=== PATIENT | female | born 1985 | race Caucasian/White ===

== ENCOUNTER 2016-09-28 13:09 | Inpatient (IN) | payer OTHER ==
[~2016-09-28] VITALS: Ht 160 cm; Wt 86.0 kg
[2016-09-28] VITALS (20 sets, daily range): BP systolic 126–160; BP diastolic 70–92
[2016-09-28] MEDS ORDERED: RANI15TA PO (13:22)
[2016-09-28] MEDS ORDERED: PRENTAB9 PO (13:22)
[2016-09-28] MEDS ORDERED: OXYTOCIN DRIP 30 UNITS in APPROPRIATE DILUENT 1 EA IV SCH (14:00)
[2016-09-28 14:28] LABS: MEAN CORPUSCULAR HEMOGLOBIN 28.9 pg (27.0-33.0); MEAN CORPUSCULAR HGB CONC 32.9 g/dl (32.0-36.5); MEAN CORPUSCULAR VOLUME 87.9 fl (80.0-96.0); RED CELL DISTRIBUTION WIDTH 13.7 % (11.5-14.5); WHITE BLOOD COUNT 11.6 K/mm3 (4.0-10.0)
[2016-09-28 14:50] LABS: ALT/SGPT 13 U/L (12-78); AST/SGOT 20 U/L (15-37); BILIRUBIN,TOTAL 0.3 MG/DL (0.2-1.0); CREATININE FOR GFR 0.67 MG/DL (0.55-1.02); GLOMERULAR FILTRATION RATE > 60.0 (>60); URIC ACID 5.2 MG/DL (2.6-6.0)
[2016-09-28] MEDS: LR 1,000 ML IV SCH ×2 (15:00→21:46)
[2016-09-28] MEDS ORDERED: PENICILLIN G POTASSIUM IV 5 MU in D5W MINI-BAG PLUS 100 ML IV STA (22:06)
[2016-09-28] MEDS: raNITIdine SYRUP 150 MG/10 ML UDC PO SCH (23:16)
[2016-09-29] VITALS (55 sets, daily range): BP systolic 116–166; BP diastolic 62–96
[2016-09-29] MEDS: PENICILLIN G POTASSIUM IV 2.5 MU in D5W 100 ML IV SCH ×3 (02:55→10:58)
[2016-09-29] MEDS ORDERED: FENTANYL 2MCG/ML ROPIVACAINE 0.2% IN 0.9% NACL 200ML IVBAG As Ordered ONE (04:05)
[2016-09-29] MEDS: FENTANYL/ROPIVACAINE/NACL BAG 200 ML EPIDURAL SCH ×2 (05:15→18:11)
[2016-09-29] MEDS ORDERED: NALOXONE INJ 0.4 MG/1 ML VIAL (J2310) IV PRN (05:15)
[2016-09-29] MEDS ORDERED: LACTATED RINGER'S 1000 ML IV PRN (05:15)
[2016-09-29] MEDS ORDERED: ePHEDrine SULFATE 25 MG/5 ML(5MG/ML) SYRINGE IV PRN (05:15)
[2016-09-29] MEDS ORDERED: EPIDURAL COMMENT XX SCH (05:15)
[2016-09-29] MEDS ORDERED: EPIDURAL/PCA KEYS XX PRN (05:15)
[2016-09-29] MEDS ORDERED: ONDANSETRON 4MG/2ML VIAL (J2405) IV PRN ×2 (05:15→22:00)
[2016-09-29] MEDS ORDERED: diphenhydrAMINE INJ 50MG/ML VIAL (J1200) IV PRN (05:15)
[2016-09-29] MEDS ORDERED: REFRIGERATOR IV KEYS XX PRN (05:15)
[2016-09-29] MEDS: LR 1,000 ML IV SCH (05:46)
[2016-09-29] MEDS ORDERED: OXYTOCIN DRIP 30 UNITS in APPROPRIATE DILUENT 1 EA IV SCH ×3 (08:00→23:06)
[2016-09-29] MEDS: raNITIdine SYRUP 150 MG/10 ML UDC PO SCH (09:00)
--- NOTE | 2016-09-29 11:27 | IPNPDOC ---
Text Note Date of Service The patient was seen on 09/29/16. NOTE SBAR from [facility] Maria Del Rosario at [phone]. IOL for Pre-E. No pre-e sx's currently. Epidural working well, but lots of pressure. FHT is Cat 1, on 10 mu/min pitocin VSS, no severe BP's Cx 7/c/-1 active labor now. Recheck in 2-3 hrs, sooner prn. Sessions Isa NIX, I+O VSIsa I+O Laboratory Tests 09/28/16 14:09 Aspartate Amino Transf (AST/SGOT) 20, Alanine Aminotransferase (ALT/SGPT) 13, Lactate Dehydrogenase 265 H, Total Bilirubin 0.3, Uric Acid 5.2 09/28/16 14:10 Red Blood Count 3.88 L, Mean Corpuscular Volume 87.9, Mean Corpuscular Hemoglobin 28.9, Mean Corpuscular Hemoglobin Concent 32.9, Red Cell Distribution Width 13.7 Vital Signs Date Time Temp Pulse Resp B/P (MAP) Pulse Ox O2 Delivery O2 Flow Rate FiO2 09/29/16 09:06 94 16 123/68 (86) 09/29/16 07:36 97.9 I&O- Last 24 Hours up to 6 AM 09/29/16 05:59 Intake Total 1400 ml Output Total 1000 ml Balance 400 ml VIANEY SLATER MD September 29, 2016 11:27
--- NOTE | 2016-09-29 13:24 | IPNPDOC ---
Text Note Date of Service The patient was seen on 09/29/16. NOTE lots pressure. NST cat 1. Cx 7-8/90/-1, not ,uch change/ OIUPC placed, incr pit to sebastián GUNTER's, d/w RN. Sessions VS,Isa, I+O VS, Isa I+O Laboratory Tests 09/28/16 14:09 Aspartate Amino Transf (AST/SGOT) 20, Alanine Aminotransferase (ALT/SGPT) 13, Lactate Dehydrogenase 265 H, Total Bilirubin 0.3, Uric Acid 5.2 09/28/16 14:10 Red Blood Count 3.88 L, Mean Corpuscular Volume 87.9, Mean Corpuscular Hemoglobin 28.9, Mean Corpuscular Hemoglobin Concent 32.9, Red Cell Distribution Width 13.7 Vital Signs Date Time Temp Pulse Resp B/P (MAP) Pulse Ox O2 Delivery O2 Flow Rate FiO2 09/29/16 11:36 100 16 129/77 (94) 09/29/16 11:05 99.9 I&O- Last 24 Hours up to 6 AM 09/29/16 06:00 Intake Total 1400 ml Output Total 1000 ml Balance 400 ml SESSIONS,VIANEY Marie MD September 29, 2016 13:24
[2016-09-29] MEDS ORDERED: AMPICILLIN SOD/SULBACTAM SOD 3 GM in D5W MINI-BAG PLUS 100 ML IV SCH (15:00)
--- NOTE | 2016-09-29 16:20 | IPNPDOC ---
Text Note Date of Service The patient was seen on 09/29/16. NOTE Approximately 1 hr ago was 9 cm. Now with pressure is C/C/IGNACIO/+2. Due to the fever, will start pushing and not "labor down." NST Cat 1, reg ctx's. Sessions VS,Isa, I+O VS, Isa I+O Vital Signs Date Time Temp Pulse Resp B/P (MAP) Pulse Ox O2 Delivery O2 Flow Rate FiO2 09/29/16 11:36 100 16 129/77 (94) 09/29/16 11:05 99.9 I&O- Last 24 Hours up to 6 AM 09/29/16 05:59 Intake Total 1400 ml Output Total 1000 ml Balance 400 ml SESSIONS,VIANEY Marie MD September 29, 2016 16:20
[2016-09-29] MEDS ORDERED: BICITRA 30ML SOLN UDC As Ordered ONE (20:12)
[2016-09-29] MEDS ORDERED: ceFAZolin 1GM INJ (J0690) As Ordered ONE (20:12)
[2016-09-29] MEDS ORDERED: MORPHINE PRES-FREE INJ 10 MG/10 ML VIAL (J2274) As Ordered ONE (20:15)
[2016-09-29] MEDS ORDERED: OXYTOCIN INJ 10 UNITS/ML VIAL (J2590) As Ordered ONE ×2 (20:15→20:16)
--- NOTE | 2016-09-29 20:16 | IPNPDOC ---
Text Note Date of Service The patient was seen on 09/29/16. NOTE Checked pt 1 hour after starting pushing and was unchanged at +1 station. I kvngsvetlana was called to the ED to care for an incomplete AB that I took to the OR for a D&C. Razia called me approximately 2.5-3 hrs after starting pushing and taht her efforts had been ineffective for >1 hour and that she sdid not detect any downward movement. I directed them to stop pushing and rest the pt for ~1 hour and then I would reassess after I was finished in the OR. My exam now shows no concerning FHR changes, Cat 1 NST, re g ctx's on 20 mu/min pitocin. Early's only with pushing. No change in station therefore I recommend and informed consent obtained. To the OR, anesthesia notified. Sessions Isa NIX, I+O VSIsa I+O Vital Signs Date Time Temp Pulse Resp B/P (MAP) Pulse Ox O2 Delivery O2 Flow Rate FiO2 09/29/16 11:36 100 16 129/77 (94) 09/29/16 11:05 99.9 I&O- Last 24 Hours up to 6 AM 09/29/16 06:00 Intake Total 1400 ml Output Total 1000 ml Balance 400 ml SESSIONSVIANEY MD September 29, 2016 20:16
[2016-09-29] MEDS ORDERED: PHENYLephrine HCL 500 MCG/5 ML (100MCG/ML) SYRINGE (J2370) As Ordered ONE ×3 (20:50→23:59)
[2016-09-29] MEDS ORDERED: ONDANSETRON 4MG/2ML VIAL (J2405) As Ordered ONE (20:52)
[2016-09-29] MEDS ORDERED: KETOROLAC 60 MG/2 ML VIAL (J1885) As Ordered ONE (20:52)
[2016-09-29 21:12] LABS: CORD GAS ABE V -5.9; CORD GAS HCO3 V 22.5 MEQ/L; CORD GAS PCO2 V 54.5 mmHg; CORD GAS PH V 7.234 UNITS; CORD GAS PO2 V 21.9 mmHg; CORD GAS SBC V 18.3 MEQ/L; CORD GAS TCO2 V 24.2 MEQ/L
[2016-09-29 21:14] LABS: CORD GAS ABE A -4.7; CORD GAS HCO3 A 24.8 MEQ/L; CORD GAS O2 SAT A 18.8 %; CORD GAS PCO2 A 63.7 mmHg; CORD GAS PH A 7.208 UNITS; CORD GAS PO2 A 12.4 mmHg; CORD GAS SBC A 18.6 MEQ/L; CORD GAS TCO2 A 26.7 MEQ/L
[2016-09-29] MEDS ORDERED: LR 1,000 ML IV SCH ×3 (21:51→22:00)
[2016-09-29] MEDS ORDERED: METOCLOPRAMIDE INJ 10MG/2ML VIAL (J2765) IV PRN (22:00)
[2016-09-29] MEDS ORDERED: MEPERIDINE INJ 25 MG/ML VIAL (J2175) IV PRN (22:00)
[2016-09-29] MEDS ORDERED: PERCOCET 5MG/325MG TAB PO PRN ×3 (22:00)
[2016-09-29] MEDS ORDERED: HYDROmorphone HCL 1 MG/ML SYRINGE (J1170) IV PRN (22:00)
[2016-09-29] MEDS ORDERED: fentaNYL 100 MCG/2 ML INJECTION (J3010) IV PRN (22:00)
[2016-09-29] MEDS ORDERED: MEASLES,MUMPS,RUBELLA VACCINE INJ (MMR-II) (90707) SC SCH ×2 (22:00)
[2016-09-29] MEDS ORDERED: RHOGAM 300 MCG (1500 IU) INJ (J2790) IM SCH ×2 (22:00)
[2016-09-29] MEDS ORDERED: NALBUPHINE HCL 10 MG/ML AMP (J2300) IV PRN (22:00)
[2016-09-29] MEDS ORDERED: CARBOPROST TROMETHAMINE 250 MCG/ML AMP As Ordered ONE (22:08)
[2016-09-29] MEDS ORDERED: miSOPROStol 200 MCG TAB (S0191) As Ordered ONE (22:08)
[2016-09-29] MEDS ORDERED: miSOPROStol 200 MCG TAB (S0191) PR ONE (22:30)
[2016-09-29] MEDS ORDERED: PROMETHAZINE INJ 25 MG/ML VIAL (J2550) IV ONE (22:30)
[2016-09-29] MEDS ORDERED: CARBOPROST TROMETHAMINE 250 MCG/ML AMP IM ONE (22:30)
[2016-09-29] MEDS ORDERED: OXYTOCIN 30 UNITS IN 0.9% NaCl 500ML IV BAG (J2590) As Ordered ONE (22:53)
--- NOTE | 2016-09-29 23:18 | IPNPDOC ---
Text Note Date of Service The patient was seen on 09/29/16. NOTE PACU prog note Called to PACU for bleeding, had approx 350-400 total after I did a bimanual exam and expressed a few clots from the vag/cx. Ut was at U and soft. Firmed up with massage. Of note, during the the fundus was very thin but firmed up to normal thickness/tone after a fwe minutes and pitocin bolus. In the PACU I placed 1,000 mcg cytotec DC and gave 250 mcg hemabate IM. Had another 100 cc's clot as reported to me by WESLEY Willis~30 min later. Therefore 1000 total at this point. Ordered another bag of 30 U pitocin/500 cc LR as a bolus (third, second was given at 125-250/hr). T&C 2 units PRBC's done at my request. Watching closely. Sessions VS,Isa I+O VSIsa I+O Vital Signs Date Time Temp Pulse Resp B/P (MAP) Pulse Ox O2 Delivery O2 Flow Rate FiO2 09/29/16 19:07 106 16 135/94 (108) 09/29/16 18:35 99.8 I&O- Last 24 Hours up to 6 AM 09/29/16 05:59 Intake Total 1400 ml Output Total 1000 ml Balance 400 ml VIANEY SLATER MD September 29, 2016 23:18
[2016-09-29 23:37] LABS: MEAN CORPUSCULAR VOLUME 87.5 fl (80.0-96.0); RED CELL DISTRIBUTION WIDTH 14.3 % (11.5-14.5)
[2016-09-29] MEDS ORDERED: MIDAZOLAM INJ 2 MG/2 ML VIAL (J2250) As Ordered ONE (23:57)
[2016-09-29] MEDS ORDERED: fentaNYL 100 MCG/2 ML INJECTION (J3010) As Ordered ONE (23:59)
[2016-09-29] MEDS ORDERED: CALCIUM CHLORIDE 10% 1 GM/10 ML SYR As Ordered ONE (23:59)
[2016-09-30] VITALS (24 sets, daily range): BP systolic 105–137; BP diastolic 56–92; O2SAT 97
[2016-09-30] MEDS ORDERED: PHENYLephrine HCL 500 MCG/5 ML (100MCG/ML) SYRINGE (J2370) As Ordered ONE ×5 (00:09→04:25)
[2016-09-30] MEDS ORDERED: UNASYN 1.5 GM VIAL As Ordered ONE (00:31)
[2016-09-30] MEDS ORDERED: fentaNYL 100 MCG/2 ML INJECTION (J3010) As Ordered ONE ×2 (00:39→01:28)
[2016-09-30 01:20] LABS: MEAN CORPUSCULAR HGB CONC 31.7 g/dl (32.0-36.5); MEAN CORPUSCULAR VOLUME 91.6 fl (80.0-96.0); RED CELL DISTRIBUTION WIDTH 13.9 % (11.5-14.5); WHITE BLOOD COUNT 19.8 K/mm3 (4.0-10.0)
[2016-09-30] MEDS ORDERED: SUCCINYLCHOLINE 100 MG/5 ML SYRINGE (J0330) As Ordered ONE ×2 (01:26→04:03)
[2016-09-30] MEDS ORDERED: LIDOCAINE 2% INJ 100 MG/5 ML SDV (FOR ANES.) As Ordered ONE ×2 (01:26→04:03)
[2016-09-30] MEDS ORDERED: diphenhydrAMINE INJ 50MG/ML VIAL (J1200) As Ordered ONE (01:26)
[2016-09-30 01:30] LABS: INR 1.45
[2016-09-30] MEDS ORDERED: METOCLOPRAMIDE INJ 10MG/2ML VIAL (J2765) IV PRN ×2 (02:00→06:00)
[2016-09-30] MEDS ORDERED: MEPERIDINE INJ 25 MG/ML VIAL (J2175) As Ordered ONE (02:33)
[2016-09-30] MEDS ORDERED: KETOROLAC 30 MG/ML VIAL (J1885) IV SCH (03:00)
[2016-09-30] MEDS ORDERED: fentaNYL 250 MCG/5 ML INJECTION (J3010) As Ordered ONE (03:03)
[2016-09-30] MEDS ORDERED: MIDAZOLAM INJ 2 MG/2 ML VIAL (J2250) As Ordered ONE (03:03)
[2016-09-30] MEDS ORDERED: PHENYLEPHRINE INJ 10MG/ML VIAL (J2370) As Ordered ONE (03:42)
[2016-09-30] MEDS ORDERED: PHENYLEPHRINE INJ 10MG/ML VIAL (J2370) IV SCH (04:00)
[2016-09-30] MEDS ORDERED: EPINEPHrine 1MG/10ML SYRINGE 1.5IN As Ordered ONE (04:03)
[2016-09-30] MEDS ORDERED: PROPOFOL 200 MG/20 ML VIAL As Ordered ONE ×2 (04:03)
[2016-09-30] MEDS ORDERED: PHENYLEPHRINE HCL INJ 50 MG in D5W 500 ML IV SCH (04:15)
[2016-09-30] MEDS ORDERED: CALCIUM CHLORIDE 10% 1 GM/10 ML SYR As Ordered ONE (04:25)
[2016-09-30] MEDS ORDERED: METOCLOPRAMIDE INJ 10MG/2ML VIAL (J2765) As Ordered ONE (04:48)
[2016-09-30 05:34] LABS: MEAN CORPUSCULAR HEMOGLOBIN 29.7 pg (27.0-33.0); MEAN CORPUSCULAR HGB CONC 33.6 g/dl (32.0-36.5); MEAN CORPUSCULAR VOLUME 88.4 fl (80.0-96.0); RED CELL DISTRIBUTION WIDTH 14.4 % (11.5-14.5); WHITE BLOOD COUNT 16.6 K/mm3 (4.0-10.0)
[2016-09-30 05:44] LABS: INR 1.2
[2016-09-30] MEDS ORDERED: fentaNYL 100 MCG/2 ML INJECTION (J3010) IV PRN (05:45)
[2016-09-30] MEDS ORDERED: MEPERIDINE INJ 25 MG/ML VIAL (J2175) IV PRN (05:45)
[2016-09-30] MEDS ORDERED: diphenhydrAMINE INJ 50MG/ML VIAL (J1200) IV PRN (05:45)
[2016-09-30] MEDS ORDERED: HYDROmorphone HCL 1 MG/ML SYRINGE (J1170) IV PRN (05:45)
[2016-09-30] MEDS ORDERED: LR 1,000 ML IV SCH (05:45)
[2016-09-30] MEDS ORDERED: RHOGAM 300 MCG (1500 IU) INJ (J2790) IM SCH (06:00)
[2016-09-30] MEDS ORDERED: PERCOCET 5MG/325MG TAB PO PRN (06:00)
[2016-09-30] MEDS ORDERED: MEASLES,MUMPS,RUBELLA VACCINE INJ (MMR-II) (90707) SC SCH (06:00)
[2016-09-30 06:01] LABS: ALT/SGPT 17 U/L (12-78); AST/SGOT 34 U/L (15-37); CREATININE FOR GFR 1.06 MG/DL (0.55-1.02); URIC ACID 4.8 MG/DL (2.6-6.0)
[2016-09-30 06:02] LABS: ALBUMIN 1.9 GM/DL (3.2-5.2); ALBUMIN/GLOBULIN RATIO 0.95 (1.00-1.93); ALKALINE PHOSPHATASE 68 U/L (45-117); ALT/SGPT 16 U/L (12-78); ANION GAP 11 MEQ/L (8-16); AST/SGOT 34 U/L (15-37); BLOOD UREA NITROGEN 11 MG/DL (7-18); CALCIUM LEVEL 7.4 MG/DL (8.5-10.1); CARBON DIOXIDE LEVEL 20 MEQ/L (21-32); CHLORIDE LEVEL 113 MEQ/L (98-107); CREATININE FOR GFR 1.08 MG/DL (0.55-1.02); GLUCOSE, FASTING 161 MG/DL (70-105); SODIUM LEVEL 144 MEQ/L (136-145); TOTAL PROTEIN 3.9 GM/DL (6.4-8.2)
[2016-09-30 06:08] LABS: GLOMERULAR FILTRATION RATE > 60.0 (>60)
[2016-09-30] MEDS: LR 1,000 ML IV SCH (06:35)
[2016-09-30 07:15] LABS: BASO % 0.2 % (0.0-1.0); EOS % 0.1 % (0.0-3.0); LARGE UNSTAINED CELL # 0.2 K/mm3 (0.0-0.4); LARGE UNSTAINED CELL % 0.9 % (0.0-4.0); LYMPH # 2.9 K/mm3 (1.5-6.5); LYMPH % 15.3 % (24.0-44.0); MEAN CORPUSCULAR HEMOGLOBIN 29.7 pg (27.0-33.0); MEAN CORPUSCULAR HGB CONC 34.6 g/dl (32.0-36.5); MEAN CORPUSCULAR VOLUME 85.9 fl (80.0-96.0); MONO # 1.2 K/mm3 (0.0-0.8); MONO % 6.9 % (0.0-5.0); NEUTROPHILS # 13.7 K/mm3 (1.8-7.7); NEUTROPHILS % 76.6 % (36.0-66.0); PLATELET COUNT, AUTOMATED 114 k/mm3 (150-450); RED CELL DISTRIBUTION WIDTH 14.6 % (11.5-14.5); WHITE BLOOD COUNT 17.8 K/mm3 (4.0-10.0)
[2016-09-30 07:20] LABS: INR 1.19
--- NOTE | 2016-09-30 07:21 | CR.PDOC ---
[facility] Consultation Consultation HOSPITALIST CONSULT NOTE Date of consult: 09/30/2016 Referring Provider: Dr. 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 She was induced secondary to preeclampsia. She ended up having a section secondary to failure to descend. The itself was uncomplicated, but postoperatively, the patient began to experience a large hemorrhage. Initially, they were able to stop the bleeding, and had inserted a balloon in her uterus in an effort to preserve her uterus. Unfortunately, in the recovery unit, the patient began to bleed very heavily again, he had returned to the operating room and perform an emergency hysterectomy. Prior to the emergency hysterectomy, the patient was already exhibiting signs of DIC. She is now out of surgery, has not required any pressors postoperatively. Dr. powell estimates her total blood loss between , hysterectomy, and her hemorrhages around 5000 mL. At this time, she has received 8 units of PRBCs, 5 of fresh frozen plasma, and 1 of platelets. The patient is currently awake and alert, and states that she is overall feeling okay. She denies any difficulty breathing or chest pain. Past medical history: Heterozygous for factor V deficiency Past surgical history: section and hysterectomy Family history: Hypertension, colon cancer, prostate cancer, no history of factor V deficiency Social history: The patient lives with her , who is active duty . She does not smoke or drink any alcohol. 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. Allergies: Codeine, sulfa Review of systems: General: Positive for subjective fevers, negative for chills Eyes: Positive for double vision which is now resolved, negative for ocular discharge ENT: Positive for sore throat, negative for nose bleed Cardiovascular: Negative for chest pain and palpitations Respiratory: Negative for cough and shortness of breath GI: Positive for nausea and vomiting Musculoskeletal: Negative for neck pain and back pain Skin: Negative for rash Neuro: Positive for headache, negative for dizziness, numbness, tingling : The patient has a Asif catheter in place Heme: Positive for extensive blood loss as noted in the HPI Home meds: See below Physical exam: Vital signs: Vital Signs Date Time Temp Pulse Resp B/P (MAP) Pulse Ox O2 Delivery O2 Flow Rate FiO2 09/30/16 06:02 97 Nasal Cannula 2.0 09/30/16 05:45 114 20 140/82 (101) 09/30/16 05:30 97.1 Gen.: awake, alert, no acute distress Eyes: Extraocular movements intact, normal sclera ENT: Moist mucous membranes Cardiovascular: RRR, no murmurs rubs or gallops Lungs: clear to auscultation bilaterally, no rales, rhonchi, or wheeze Abdomen: Soft, normal BS, mild but appropriate abd tenderness in light of recent Csection/hysterectomy Extremities: 2+ peripheral edema Neuro: alert and oriented 3, normal speech, no focal deficits Psych: Normal mood with congruent affect Labs and radiology: See below Hemoglobin 9.4 Platelets 111 PT 15.3 Fibrinogen has now normalized Assessment and plan: 30-year-old female who is heterozygous for factor V deficiency who was admitted by [facility]ERR[facility] PITTER for induction of labor secondary to preeclampsia. After an uncomplicated , she suffered a large hemorrhage, and appeared to be in DIC. They initially thought to able to save her uterus by placing a balloon, but after she had stabilized, she began to bleed heavily again, and they had returned operating room for an emergency hysterectomy. We have been consulted for help with management of fluid status and electrolytes, as well as concern for DIC. 1. DIC and acute blood loss anemia: Dr. Powell estimates that the patient lost a total of approximately 5000 mL of blood. She has now received 8 units PRBCs, 5 FFP, and 1 platelets. At this point, her fibrinogen has normalized, and her PT is improving. Hemoglobin is currently 9.4 and platelets are 111. We will continue to trend her CBC and coags. We will treat her supportively as needed with further blood products. At this time, she is quite stable and is not requiring any pressors. I would hold off on further blood products until we have repeat labs. May consider twister tender paper consult pending clinical course. 2. Volume status: The patient has received a lot of volume between the blood products and IV fluids. At this time, Dr. Powell is hoping to hold off on any further fluids. She has no evidence of being in flash pulmonary edema at this time, she is satting well on 2 L and denies any difficulty breathing. We will get a chest x-ray to assess. We will diuresis as needed, but will have to be particularly mindful of the fact that she does have preeclampsia, and be quite judicious with the diuresis. 3. Electrolytes: These are currently stable. We'll continue to monitor and replace as necessary. DVT prophylaxis: SCDs Thank you for this consult. We will continue to follow along with you. Dr. Mock will begin coverage at 7am today. Vital Signs/I&O Vital Signs Date Time Temp Pulse Resp B/P (MAP) Pulse Ox O2 Delivery O2 Flow Rate FiO2 09/30/16 06:02 97 Nasal Cannula 2.0 09/30/16 05:45 114 20 140/82 (101) 09/30/16 05:30 97.1 I&O- Last 24 Hours up to 6 AM 09/30/16 06:00 Intake Total 90569 ml Output Total 9425 ml Balance 8255 ml Laboratory Data Labs 24H Laboratory Tests 2 09/29/16 21:06: Cord Arterial Blood pH 7.208, Cord Arterial Blood PCO2 63.7, Cord Arterial Blood PO2 12.4, Cord Arterial Blood HCO3 24.8, Cord Arterial Blood Total CO2 26.7, Cord Arterial Blood Base Excess -4.7, Cord Arterial Base Excess (Standard 18.6, Cord Arterial Bld Oxygen Saturation 18.8, Cord Venous Blood pH 7.234, Cord Venous Blood PCO2 54.5, Cord Venous Blood PO2 21.9, Cord Venous Blood HCO3 22.5, Cord Venous Blood Total CO2 24.2, Cord Venous Base Excess (Actual) -5.9, Cord Venous Base Excess (Standard) 18.3, Cord Venous Blood Oxygen Saturation 43.0 09/30/16 01:00: Prothrombin Time 17.7H, Prothromb Time International Ratio 1.45, Activated Partial Thromboplast Time 38.3H, Fibrinogen 204L 09/30/16 05:24: Prothrombin Time 15.3H, Prothromb Time International Ratio 1.20, Fibrinogen 249 , Anion Gap 11, Glomerular Filtration Rate > 60.0, Creatinine 1.06#H, Aspartate Amino Transf (AST/SGOT) 34, Alanine Aminotransferase (ALT/SGPT) 17, Lactate Dehydrogenase 293H, Total Bilirubin 1.0#, Uric Acid 4.8, Blood Urea Nitrogen 11 , Sodium Level 144, Potassium Level 5.0, Chloride Level 113H, Carbon Dioxide Level 20L, Calcium Level 7.4L, Alkaline Phosphatase 68, Total Protein 3.9L, Albumin 1.9L, Albumin/Globulin Ratio 0.95L 09/30/16 06:54: CBC/BMP Laboratory Tests 09/29/16 23:33 Red Blood Count 2.33 L, Mean Corpuscular Volume 87.5, Mean Corpuscular Hemoglobin 28.0, Mean Corpuscular Hemoglobin Concent 32.0, Red Cell Distribution Width 14.3 09/30/16 01:00 Red Blood Count 2.48 L, Mean Corpuscular Volume 91.6, Mean Corpuscular Hemoglobin 29.0, Mean Corpuscular Hemoglobin Concent 31.7 L, Red Cell Distribution Width 13.9 09/30/16 05:24 Red Blood Count 3.15 L, Mean Corpuscular Volume 88.4, Mean Corpuscular Hemoglobin 29.7, Mean Corpuscular Hemoglobin Concent 33.6, Red Cell Distribution Width 14.4, Calcium Level 7.4 L, Aspartate Amino Transf (AST/SGOT) 34, Alanine Aminotransferase (ALT/SGPT) 16, Alkaline Phosphatase 68, Total Bilirubin 1.0, Total Protein 3.9 L, Albumin 1.9 L, Lactate Dehydrogenase 293 H, Uric Acid 4.8 Allergies Coded Allergies: Codeine (Verified Adverse Reaction, Unknown, 09/28/16) GI upset Sulfa Antibiotics (Verified Adverse Reaction, Unknown, 09/28/16) Home Medications Scheduled Multivitamins/ ( 27-0.8 mg) 1 Tab Tab, 1 TAB PO DAILY, (Reported ) Ranitidine Hcl (Zantac) 150 Mg Tab, 1 TAB PO BID, (Reported) URI DO September 30, 2016 07:21
[2016-09-30] MEDS: DOCUSATE SODIUM 100 MG CAP PO SCH ×2 (07:30→21:39)
--- NOTE | 2016-09-30 07:54 | REP ---
Portable chest, single AP view, patient sitting, 07:23 a.m., 09/30/1925: There are no comparisons. There is no pulmonary edema. No pleural effusions. There are no focal infiltrates. The lung sy are clear. Cardiac size is normal. The carmelina, mediastinum, and bony thorax are unremarkable. Impression: Essentially negative portable chest. Signed by Howard Drake MD 09/30/2016 07:45 A
[2016-09-30] MEDS: PRENATAL VITAMIN TAB PO SCH (08:36)
--- NOTE | 2016-09-30 08:39 | REP ---
Clinical: Emergency hysterectomy. Technique: Portable supine view of the abdomen and pelvis. Comparison: 09/30/2016 at 01:50 a.m.. Findings: Bowel gas pattern is nonspecific. No retained operative instrumentation or pads identified. No radiodense foreign body. No abnormal calcifications. Skeletal structures intact. Impression: Nonspecific portable abdominal radiograph. No residual operative instrumentation or material noted. Signed by Vasyl Olivarez MD 09/30/2016 08:30 A
--- NOTE | 2016-09-30 08:47 | REP ---
KUB: Single view. History: Emergent case preop. Count not performed preop. Findings: Supine portable abdominal film shows no evidence of opaque foreign body. There are a few loops of air-filled colon in the mid abdomen. Impression: No opaque foreign body seen. Signed by Breezy Lange MD 09/30/2016 12:17 P
[2016-09-30] MEDS ORDERED: DOCUSATE SODIUM 100 MG CAP PO SCH (09:00)
[2016-09-30] MEDS ORDERED: PRENATAL VITAMIN TAB PO SCH ×2 (09:00)
[2016-09-30 11:06] LABS: WHITE BLOOD COUNT 15.1 K/mm3 (4.0-10.0)
[2016-09-30 11:07] LABS: BASO % 0.1 % (0.0-1.0); EOS % 0.3 % (0.0-3.0); INR 1.15; LARGE UNSTAINED CELL # 0.3 K/mm3 (0.0-0.4); LARGE UNSTAINED CELL % 1.8 % (0.0-4.0); LYMPH # 2.8 K/mm3 (1.5-6.5); LYMPH % 18.6 % (24.0-44.0); MEAN CORPUSCULAR HEMOGLOBIN 29.4 pg (27.0-33.0); MEAN CORPUSCULAR HGB CONC 34.9 g/dl (32.0-36.5); MEAN CORPUSCULAR VOLUME 84.3 fl (80.0-96.0); MONO # 1.1 K/mm3 (0.0-0.8); MONO % 7.1 % (0.0-5.0); NEUTROPHILS # 10.9 K/mm3 (1.8-7.7); NEUTROPHILS % 72.1 % (36.0-66.0); PLATELET COUNT, AUTOMATED 116 k/mm3 (150-450); RED CELL DISTRIBUTION WIDTH 14.8 % (11.5-14.5)
[2016-09-30] MEDS: AMPICILLIN SOD/SULBACTAM SOD 3 GM in D5W MINI-BAG PLUS 100 ML IV SCH ×3 (11:36→21:40)
[2016-09-30] MEDS ORDERED: ENOXAPARIN 40 MG/0.4 ML SYRINGE (J1650) SC SCH (12:00)
--- NOTE | 2016-09-30 13:03 | RO ---
DATE OF PROCEDURE: 09/28/2016 PREPROCEDURE DIAGNOSIS: Arrest of descent after 3 hours of pushing. POSTPROCEDURE DIAGNOSIS: Arrest of descent after 3 hours of pushing and straight occiput posterior position. FINDINGS: Male in good shape with scores of 9 and 9, clear fluid, tightly wedged into the bony pelvis. Of note, there was a very thin uterine fundal wall, about the size of a quarter that was noted to be easily folded upon itself after the placenta and uterus was delivered through the abdominal incision and placed on the abdominal wall. After the standard Pitocin was administered after placental delivery, the said very thin fundus firmed up and was normal on palpation in firmness and thickness. This finding will become important later on in the evening. SURGEON: Dr. Howard Christensen INSURANCE COMPLIANCE ANALYST: Dr. Lidia Bedolla ANESTHESIA: Spinal. ESTIMATED BLOOD LOSS: 600 total DRAINS: 150 mL of clear urine in the Asif catheter FLUIDS REPLACED: 1800 mL of lactated Ringers OPERATIVE PROCEDURE: Primary section delivery with low transverse uterine incision. SPECIMENS: None. INDICATION: The patient pushed for approximately 3 hours and never moved the baby past 0 or +1. She was allowed to passively descend and rest for approximately 1 hour while I was in the operating room doing an emergent dilation and curettage on a different patient. When I returned to the room, the patient was slightly dazed and had a hard time focusing. I noted that she was breathing very shallowly and very quickly. I engaged her in deep slow breathing and this helped her focus and helped her to be more focused and in the moment. Her examination did not change at that point from my prior examination, which was after just 1 hour of pushing. Therefore, I recommended she undergo a section delivery. The patient agreed and written and informed consent was obtained. There was a thorough discussion of all the risks, benefits, indications and alternatives to section delivery. The patient and agreed that this was the best thing to do. PROCEDURE:She was then taken to the operating room with an IV in place and a Asif catheter in place. She was placed in the dorsal supine position with a left tilt and prepped and draped in a normal sterile fashion. After the epidural was pulled a spinal anesthetic was easily placed. After the prep and drape, we confirmed that the anesthetic was indeed working. A Pfannenstiel skin incision was carried down to the layer of the fascia, which was nicked in the midline. This fascial incision was extended bilaterally the extent of the skin incision. I then dissected sharply the rectus muscles from the anterior edge of the fascial incision. This was repeated inferiorly without difficulty. I then entered the peritoneal cavity by breaching the peritoneum in the midline of the rectus muscles, at which time I explored the abdomen and there was no scar tissue. Therefore, we executed a peritoneal window by a stretching maneuver from left to right. Bladder blade was placed. Bladder flap was easily created. A low transverse uterine incision was performed with findings notable for occiput posterior and being tightly wedged in the pelvis, I brought the head up, flexed the head and delivered through the hysterotomy, fundal pressure by my office services assistant, Dr. Bedolla. The vigorous infant was dried off. The cord was clamped times two and cut. The infant was handed off to the awaiting resuscitation team. Cord blood was obtained, as well as cord gas. The placenta was delivered under traction with fundal massage and delivered intact. I then delivered the uterus through the abdominal incision and placed it on the abdominal wall, wrapped in warm sponge. At this time, I noted a quarter sized deep defect or irregularity in the patient's fundal uterus. The wall between the endometrial cavity and the exterior fundus of the uterus was incredibly thin, paper thin. This defect was promptly noted by myself and Dr. Bedolla, but with Pitocin and fundal massage the defect quickly disappeared and you could not feel it, see it, nor palpate it after approximately a few minutes. The uterus was then returned to the abdomen after irrigation behind it and in the colic gutters bilaterally. The incision was closed with a running suture of #0 Vicryl from left to right in a locked fashion. Monocryl was used from left to right as well. The fascia was closed with #0 Vicryl from left to right using a running whipstitch, and the subcutaneous tissue was copiously irrigated, made to be hemostatic and closed with #2-0 Vicryl. Skin was closed with a running suture of #4-0 Monocryl in a subcuticular fashion and a pressure dressing was placed over the incision. All counts, including sponge, needle, instruments were correct times three. MTDD
[2016-09-30] MEDS: IBUPROFEN 800 MG TAB PO SCH ×2 (13:42→21:39)
--- NOTE | 2016-09-30 14:20 | CCN ---
DATE: 09/30/2016 NOTE: I was asked by Dr. Kauffman to evaluation Ms. Christian for recommendations regarding DIC and recent massive hemorrhage. Ms. Christian is a 30-year-old 1, para 0 female whose past medical history is notable for being heterozygote for Factor V Leiden deficiency, who was admitted to [facility] on 09/28 for induction of labor secondary to preeclampsia. She had to have a section secondary to failure to descend on the evening of 09/29. The section was uncomplicated, but postoperatively she began to experience a large post hemorrhage. A Bakri balloon was placed in her uterus in an attempt to preserve her uterus. However, in the recovery room she began to bleed around the balloon and had to return for an emergency hysterectomy. Prior to the hysterectomy she was exhibiting signs of DIC. She underwent successful surgery and did transiently require vasopressors. Her estimated blood loss was around 5000 mL. Throughout this process she has received 8 units of packed red blood cells, 5 units of FFP and 1 unit of platelets. She has not had any signs of bleeding since then and she is being monitored very closely. Currently, Ms. Christian feels reasonably well. She is able to sit on the side of the bed with some feelings of dizziness that she recovered from rapidly. She denies any chest pain or pressure. No shortness of breath. No significant abdominal pain. No nausea. She has remained afebrile. She does not drink alcohol or smoke tobacco. ALLERGIES: 1. CODEINE. 2. SULFA ANTIBIOTICS. PRESENT MEDICATIONS: - Unasyn 3 grams IV every 6 hours - Colace 100 mg by mouth twice a day - Advil 800 mg by mouth every 8 hours - Reglan 10 mg IV every 6 hours as needed - multivitamin one tablet by mouth daily - oxycodone/APAP 5/325 mg one tablet every 4 hours as needed mild pain and two tablets every 4 hours as needed moderate pain PHYSICAL EXAMINATION: Ms. Christian is lying in bed in no acute distress. She can complete full sentences. VITAL SIGNS: Temperature 98.4 with a T-max of 98.8, pulse 102, respiratory rate 14, blood pressure 127/84 with an MAP of 98. SpO2 98% on 2 liters. HEENT: Anicteric. Pupils equal, round, reactive to light. Nares: Patent bilaterally. Oropharynx: Clear, no wheezing, no evidence of drainage in the posterior pharynx. NECK: Supple, without jugular venous distention (JVD), thyromegaly or masses. Trachea is midline. LYMPH: Without cervical or supraclavicular lymphadenopathy. CHEST: Normal shape. LUNGS: Symmetric excursion. Good air entry. No wheeze, rhonchi or crackles on tidaled excursion. Normal I-to-E. No accessory muscle usage or retractions. CARDIOVASCULAR: Tachycardic, regular rhythm, normal S1 and S2, no murmur, rub or gallop appreciated. ABDOMEN: Positive bowel sounds, soft, mildly tender, no rebound or guarding. EXTREMITIES: Trace pedal edema bilaterally with 1+ edema in her hands bilaterally. Without clubbing or cyanosis. NEUROLOGIC: Awake, alert and oriented times three. LABORATORY DATA: Her most recent CBC shows a hemoglobin of 8.2 (down from 9.1, 3 hours earlier), hematocrit 23.5, platelet count 116,000, white blood cell count 15,100 with a differential of 72% neutrophils, 19% lymphocytes, and 7% monocytes. Chemistries show a sodium of 144, potassium 5.0, chloride 113, bicarbonate 20, anion gap 11, BUN 11, creatinine 1.1, glucose 161, calcium 7.4, total bilirubin 1.0, AST 34, ALT 16, alkaline phosphatase 68, total protein 3.9, albumin 1.9. Her most recent PT is 14.8 with an INR of 1.15 (down from 1.19, 4 hours previously), PTT is normal at 29.8. Fibrinogen is normal at 307. I reviewed her chest x-ray as well as the report from 09/30/2016. X-ray showed normal appearing cardiac silhouette and pulmonary vascular shadows. Normal appearing mediastinal and hilar regions. No acute infiltrates. Intake and output from yesterday was 4050 in and 1750 out making her positive 2300. Thus far today, her intake is 15,190 and her output is 8100, making her positive 7090. Her weight is 92.4 kg up from 86 kg on 09/28. IMPRESSION: 1. DIC secondary to hemorrhage and resuscitation, resolving. 2. Massive hemorrhage, no signs of recurrence at the present time. 3. Postop day 0 status post emergent hysterectomy secondary to bleed. 4. Heterozygote for Factor V Leiden deficiency 5. 1, para 1. RECOMMENDATIONS: 1. At the present time, her DIC is resolving. I would not recommend any interventions at that time. 2. I would not transfuse platelets unless less than 50,000. 3. While her hemoglobin has decreased slightly over the past 4 hours, she has not had any signs of active bleeding and some of her decrease in Hgb may be dilutional. I would not transfuse at this point and allow her to start self diuresing. She has 4 units typed and crossed, which would be available to give her immediately should she start to have further bleeding. 4. Agree with continuing to monitor her hemoglobin and coags every 4 hours. Critical care time was 25 minutes, not including procedure time. MICA
[2016-09-30 14:27] LABS: BASO % 0.2 % (0.0-1.0); EOS # 0.1 K/mm3 (0.0-0.50); EOS % 0.5 % (0.0-3.0); LARGE UNSTAINED CELL # 0.3 K/mm3 (0.0-0.4); LARGE UNSTAINED CELL % 1.7 % (0.0-4.0); LYMPH # 3.7 K/mm3 (1.5-6.5); LYMPH % 22.1 % (24.0-44.0); MEAN CORPUSCULAR HEMOGLOBIN 29.5 pg (27.0-33.0); MEAN CORPUSCULAR VOLUME 84.2 fl (80.0-96.0); MONO # 1.1 K/mm3 (0.0-0.8); NEUTROPHILS # 10.6 K/mm3 (1.8-7.7); NEUTROPHILS % 68.6 % (36.0-66.0); PLATELET COUNT, AUTOMATED 119 k/mm3 (150-450); WHITE BLOOD COUNT 15.5 K/mm3 (4.0-10.0)
[2016-09-30 14:32] LABS: INR 1.08
--- NOTE | 2016-09-30 15:38 | IPNPDOC ---
Subjective Date Seen The patient was seen on 09/30/16. Subjective Chief Complaint/HPI The patient is a 30-year-old female admitted with a reason for visit of Induction. Events since last encounter pt seen and examined, awake, mild abd pain, at this time she is hemodynamically stable Objective Physical Examination General Exam: Positive: Alert, Cooperative, No Acute Distress Eye Exam: Positive: PERRLA Chest Exam: Positive: Clear to auscultation, Normal air movement Heart Exam: Positive: Rate Normal Abdomen Exam: Positive: Soft, Tenderness Extremity Exam: Positive: Edema, Swelling Neuro Exam: Positive: Normal Speech Assessment /Plan Problems (1) Acute blood loss anemia Problem Text: * pt lost 5000 cc of blood yesterday * s/p 8 units of prbc, will order 1 unit now * continue h&h Q4 hours (2) DIC (disseminated intravascular coagulation) Status: Acute Response to Treatment: Improving Problem Text: * pt received 8units of PRBC, 5 fresh frozen and 1platelet * fibrinogen now normal, PT/PTT all normal * Platelets 114, * hg still trending down, will order one more unit of prbc * check Ct abd/pelvis to rule out bleed * vitals stables, (3) Factor 5 Leiden mutation, heterozygous Status: Chronic Problem Text: * pt was on lovenox during part of her pergnancy but it was discontinued (4) Gestational hypertension Problem Text: * pt had hypertension and was showing signs of preeclampsia * she was initially admitted for induction but due to failure to descend she was taken to OR for Csection (5) Delivery by hysterectomy Problem Text: * s/p c section and hysterectomy, incision is dressed and dressing is clean dry and intact * per nurse, pt only had mild vaginal bleeding Plan/VTE VTE Prophylaxis Ordered?: Yes Plan/Urinary Catheter Reason for insertion/continuin: Critical Pt monitoring VS, I&O, 24H, Fishbone Vital Signs/I&O Vital Signs Date Time Temp Pulse Resp B/P (MAP) Pulse Ox O2 Delivery O2 Flow Rate FiO2 09/30/16 13:02 110 14 119/60 (79) 97 Room Air 09/30/16 12:02 97.2 09/30/16 07:21 2.0 I&O- Last 24 Hours up to 6 AM 09/30/16 06:00 Intake Total 33114 ml Output Total 9425 ml Balance 8495 ml Laboratory Data 24H LABS Laboratory Tests 2 09/29/16 21:06: Cord Arterial Blood pH 7.208, Cord Arterial Blood PCO2 63.7, Cord Arterial Blood PO2 12.4, Cord Arterial Blood HCO3 24.8, Cord Arterial Blood Total CO2 26.7, Cord Arterial Blood Base Excess -4.7, Cord Arterial Base Excess (Standard 18.6, Cord Arterial Bld Oxygen Saturation 18.8, Cord Venous Blood pH 7.234, Cord Venous Blood PCO2 54.5, Cord Venous Blood PO2 21.9, Cord Venous Blood HCO3 22.5, Cord Venous Blood Total CO2 24.2, Cord Venous Base Excess (Actual) -5.9, Cord Venous Base Excess (Standard) 18.3, Cord Venous Blood Oxygen Saturation 43.0 09/30/16 01:00: Prothrombin Time 17.7H, Prothromb Time International Ratio 1.45, Activated Partial Thromboplast Time 38.3H, Fibrinogen 204L 09/30/16 05:24: Prothrombin Time 15.3H, Prothromb Time International Ratio 1.20, Fibrinogen 249 , Anion Gap 11, Glomerular Filtration Rate > 60.0, Creatinine 1.06#H, Aspartate Amino Transf (AST/SGOT) 34, Alanine Aminotransferase (ALT/SGPT) 17, Lactate Dehydrogenase 293H, Total Bilirubin 1.0#, Uric Acid 4.8, Blood Urea Nitrogen 11 , Sodium Level 144, Potassium Level 5.0, Chloride Level 113H, Carbon Dioxide Level 20L, Calcium Level 7.4L, Alkaline Phosphatase 68, Total Protein 3.9L, Albumin 1.9L, Albumin/Globulin Ratio 0.95L 09/30/16 06:54: Prothrombin Time 15.2H, Prothromb Time International Ratio 1.19, Activated Partial Thromboplast Time 28.4, Fibrinogen 277, White Blood Count 17.8H, Red Blood Count 3.06L, Hemoglobin 9.1L, Hematocrit 26.2L, Mean Corpuscular Volume 85.9, Mean Corpuscular Hemoglobin 29.7, Mean Corpuscular Hemoglobin Concent 34.6 , Red Cell Distribution Width 14.6H, Platelet Count 114L, Neutrophils (%) (Auto ) 76.6H, Lymphocytes (%) (Auto) 15.3L, Monocytes (%) (Auto) 6.9H, Eosinophils (% ) (Auto) 0.1, Basophils (%) (Auto) 0.2, Neutrophils # (Auto) 13.7H, Lymphocytes # (Auto) 2.9, Monocytes # (Auto) 1.2H, Eosinophils # (Auto) 0.0, Basophils # ( Auto) 0.0, Large Unclassified Cells % 0.9, Large Unclassified Cells # 0.2 09/30/16 10:53: White Blood Count 15.1H, Red Blood Count 2.79L, Hemoglobin 8.2L, Hematocrit 23.5L, Mean Corpuscular Volume 84.3, Mean Corpuscular Hemoglobin 29.4, Mean Corpuscular Hemoglobin Concent 34.9, Red Cell Distribution Width 14.8H, Platelet Count 116L, Neutrophils (%) (Auto) 72.1H, Lymphocytes (%) (Auto) 18.6L , Monocytes (%) (Auto) 7.1H, Eosinophils (%) (Auto) 0.3, Basophils (%) (Auto) 0.1, Neutrophils # (Auto) 10.9H, Lymphocytes # (Auto) 2.8, Monocytes # (Auto) 1.1H, Eosinophils # (Auto) 0.0, Basophils # (Auto) 0.0, Large Unclassified Cells % 1.8, Large Unclassified Cells # 0.3, Prothrombin Time 14.8H, Prothromb Time International Ratio 1.15, Activated Partial Thromboplast Time 29.8, Fibrinogen 307 09/30/16 14:19: White Blood Count 15.5H, Red Blood Count 2.59L, Hemoglobin 7.6L, Hematocrit 21.8L, Mean Corpuscular Volume 84.2, Mean Corpuscular Hemoglobin 29.5, Mean Corpuscular Hemoglobin Concent 35.0, Red Cell Distribution Width 15.0H, Platelet Count 119L, Neutrophils (%) (Auto) 68.6H, Lymphocytes (%) (Auto) 22.1L , Monocytes (%) (Auto) 7.0H, Eosinophils (%) (Auto) 0.5, Basophils (%) (Auto) 0.2, Neutrophils # (Auto) 10.6H, Lymphocytes # (Auto) 3.7, Monocytes # (Auto) 1.1H, Eosinophils # (Auto) 0.1, Basophils # (Auto) 0.0, Large Unclassified Cells % 1.7, Large Unclassified Cells # 0.3, Prothrombin Time 14.1, Prothromb Time International Ratio 1.08, Activated Partial Thromboplast Time 29.7, Fibrinogen 358 CBC/BMP Laboratory Tests 09/29/16 23:33 Red Blood Count 2.33 L, Mean Corpuscular Volume 87.5, Mean Corpuscular Hemoglobin 28.0, Mean Corpuscular Hemoglobin Concent 32.0, Red Cell Distribution Width 14.3 09/30/16 01:00 Red Blood Count 2.48 L, Mean Corpuscular Volume 91.6, Mean Corpuscular Hemoglobin 29.0, Mean Corpuscular Hemoglobin Concent 31.7 L, Red Cell Distribution Width 13.9 09/30/16 05:24 Red Blood Count 3.15 L, Mean Corpuscular Volume 88.4, Mean Corpuscular Hemoglobin 29.7, Mean Corpuscular Hemoglobin Concent 33.6, Red Cell Distribution Width 14.4, Calcium Level 7.4 L, Aspartate Amino Transf (AST/SGOT) 34, Alanine Aminotransferase (ALT/SGPT) 16, Alkaline Phosphatase 68, Total Bilirubin 1.0, Total Protein 3.9 L, Albumin 1.9 L, Lactate Dehydrogenase 293 H, Uric Acid 4.8 09/30/16 06:54 Red Blood Count 3.06 L, Mean Corpuscular Volume 85.9, Mean Corpuscular Hemoglobin 29.7, Mean Corpuscular Hemoglobin Concent 34.6, Red Cell Distribution Width 14.6 H, Neutrophils (%) (Auto) 76.6 H, Lymphocytes (%) (Auto ) 15.3 L, Monocytes (%) (Auto) 6.9 H, Eosinophils (%) (Auto) 0.1, Basophils (%) (Auto) 0.2, Neutrophils # (Auto) 13.7 H, Lymphocytes # (Auto) 2.9, Monocytes # ( Auto) 1.2 H, Eosinophils # (Auto) 0.0, Basophils # (Auto) 0.0 09/30/16 10:53 Red Blood Count 2.79 L, Mean Corpuscular Volume 84.3, Mean Corpuscular Hemoglobin 29.4, Mean Corpuscular Hemoglobin Concent 34.9, Red Cell Distribution Width 14.8 H, Neutrophils (%) (Auto) 72.1 H, Lymphocytes (%) (Auto ) 18.6 L, Monocytes (%) (Auto) 7.1 H, Eosinophils (%) (Auto) 0.3, Basophils (%) (Auto) 0.1, Neutrophils # (Auto) 10.9 H, Lymphocytes # (Auto) 2.8, Monocytes # ( Auto) 1.1 H, Eosinophils # (Auto) 0.0, Basophils # (Auto) 0.0 09/30/16 14:19 Red Blood Count 2.59 L, Mean Corpuscular Volume 84.2, Mean Corpuscular Hemoglobin 29.5, Mean Corpuscular Hemoglobin Concent 35.0, Red Cell Distribution Width 15.0 H, Neutrophils (%) (Auto) 68.6 H, Lymphocytes (%) (Auto ) 22.1 L, Monocytes (%) (Auto) 7.0 H, Eosinophils (%) (Auto) 0.5, Basophils (%) (Auto) 0.2, Neutrophils # (Auto) 10.6 H, Lymphocytes # (Auto) 3.7, Monocytes # ( Auto) 1.1 H, Eosinophils # (Auto) 0.1, Basophils # (Auto) 0.0 PAT MASTERSON DO September 30, 2016 15:38
--- NOTE | 2016-09-30 15:53 | REP ---
Clinical: Disseminated intravascular coagulation. Findings: Lung bases demonstrate small to moderate bilateral pleural effusions and associated bibasilar as well as right middle lobe atelectasis. Visualized portions of the heart and pericardium are grossly normal. The patient is status post emergent hysterectomy and postsurgical changes include subcutaneous emphysema in the anterior abdominal wall and subcutaneous tissues as well as small to moderate amount of nonspecific free fluid in the abdomen and pelvis. Liver, spleen, pancreas, bilateral adrenal glands and kidneys are relatively normal. 2 mm nonobstructing left renal calculus cannot be excluded as well as possible cholelithiasis. There is no evidence for bowel obstruction. Pelvis demonstrates a Asif catheter in under distended bladder. Surrounding osseous structures are intact. Impression: 1. Moderate bilateral pleural effusions and bibasilar atelectasis. 2. Small to moderate nonspecific ascites. 3. Postsurgical changes related to emergent hysterectomy including subcutaneous emphysema and small amount of intraperitoneal gas. Signed by Vasyl Olivarez MD 09/30/2016 03:44 P
[2016-09-30 18:35] LABS: MEAN CORPUSCULAR HEMOGLOBIN 30.5 pg (27.0-33.0); MEAN CORPUSCULAR HGB CONC 34.8 g/dl (32.0-36.5); MEAN CORPUSCULAR VOLUME 87.4 fl (80.0-96.0); PLATELET COUNT, AUTOMATED 132 k/mm3 (150-450); RED CELL DISTRIBUTION WIDTH 14.6 % (11.5-14.5); WHITE BLOOD COUNT 15.6 K/mm3 (4.0-10.0)
[2016-09-30 18:39] LABS: INR 1.11
--- NOTE | 2016-09-30 19:39 | IPNPDOC ---
Text Note Date of Service The patient was seen on 09/30/16. NOTE Prog note day of surgery All questions answered re surgical findings and reasons for emergent nature of both her post- operations. Spoke with pt and her mother. Was able to see the baby today. Pain controlled and vitals are stable. Received 1 U PRBC's today and had a neg CT-A/P. Is is good spirits. Current labs show hct 25.7, plt 132, fibr 402, nl coags and nl CMP this AM. Spoke with Dr Padron and he recommended to pump/dump X1 and then nursing will be fine. Very much appreciate the help of the ICU staff and physicians. Sessions Ias NIX, I+O Isa LANDRY I+O Laboratory Tests 09/29/16 23:33 Red Blood Count 2.33 L, Mean Corpuscular Volume 87.5, Mean Corpuscular Hemoglobin 28.0, Mean Corpuscular Hemoglobin Concent 32.0, Red Cell Distribution Width 14.3 09/30/16 01:00 Red Blood Count 2.48 L, Mean Corpuscular Volume 91.6, Mean Corpuscular Hemoglobin 29.0, Mean Corpuscular Hemoglobin Concent 31.7 L, Red Cell Distribution Width 13.9 09/30/16 05:24 Red Blood Count 3.15 L, Mean Corpuscular Volume 88.4, Mean Corpuscular Hemoglobin 29.7, Mean Corpuscular Hemoglobin Concent 33.6, Red Cell Distribution Width 14.4, Calcium Level 7.4 L, Aspartate Amino Transf (AST/SGOT) 34, Alanine Aminotransferase (ALT/SGPT) 16, Alkaline Phosphatase 68, Total Bilirubin 1.0, Total Protein 3.9 L, Albumin 1.9 L, Lactate Dehydrogenase 293 H, Uric Acid 4.8 09/30/16 06:54 Red Blood Count 3.06 L, Mean Corpuscular Volume 85.9, Mean Corpuscular Hemoglobin 29.7, Mean Corpuscular Hemoglobin Concent 34.6, Red Cell Distribution Width 14.6 H, Neutrophils (%) (Auto) 76.6 H, Lymphocytes (%) (Auto ) 15.3 L, Monocytes (%) (Auto) 6.9 H, Eosinophils (%) (Auto) 0.1, Basophils (%) (Auto) 0.2, Neutrophils # (Auto) 13.7 H, Lymphocytes # (Auto) 2.9, Monocytes # ( Auto) 1.2 H, Eosinophils # (Auto) 0.0, Basophils # (Auto) 0.0 09/30/16 10:53 Red Blood Count 2.79 L, Mean Corpuscular Volume 84.3, Mean Corpuscular Hemoglobin 29.4, Mean Corpuscular Hemoglobin Concent 34.9, Red Cell Distribution Width 14.8 H, Neutrophils (%) (Auto) 72.1 H, Lymphocytes (%) (Auto ) 18.6 L, Monocytes (%) (Auto) 7.1 H, Eosinophils (%) (Auto) 0.3, Basophils (%) (Auto) 0.1, Neutrophils # (Auto) 10.9 H, Lymphocytes # (Auto) 2.8, Monocytes # ( Auto) 1.1 H, Eosinophils # (Auto) 0.0, Basophils # (Auto) 0.0 09/30/16 14:19 Red Blood Count 2.59 L, Mean Corpuscular Volume 84.2, Mean Corpuscular Hemoglobin 29.5, Mean Corpuscular Hemoglobin Concent 35.0, Red Cell Distribution Width 15.0 H, Neutrophils (%) (Auto) 68.6 H, Lymphocytes (%) (Auto ) 22.1 L, Monocytes (%) (Auto) 7.0 H, Eosinophils (%) (Auto) 0.5, Basophils (%) (Auto) 0.2, Neutrophils # (Auto) 10.6 H, Lymphocytes # (Auto) 3.7, Monocytes # ( Auto) 1.1 H, Eosinophils # (Auto) 0.1, Basophils # (Auto) 0.0 09/30/16 18:11 Red Blood Count 2.94 L, Mean Corpuscular Volume 87.4, Mean Corpuscular Hemoglobin 30.5, Mean Corpuscular Hemoglobin Concent 34.8, Red Cell Distribution Width 14.6 H Vital Signs Date Time Temp Pulse Resp B/P (MAP) Pulse Ox O2 Delivery O2 Flow Rate FiO2 09/30/16 17:12 103 14 116/62 (80) 96 Room Air 09/30/16 16:58 98.2 09/30/16 07:21 2.0 I&O- Last 24 Hours up to 6 AM 09/30/16 06:00 Intake Total 03148 ml Output Total 9425 ml Balance 8495 ml SESSIONS,VIANEY Marie MD September 30, 2016 19:39
[2016-09-30 19:55] LABS: BANDS 4 % (< 11); BASOPHILS 1 % (0-4)
[2016-09-30 19:56] LABS: ANISOCYTOSIS 1+
[2016-09-30 23:43] LABS: BASO % 0.2 % (0.0-1.0); EOS # 0.2 K/mm3 (0.0-0.50); EOS % 0.9 % (0.0-3.0); LARGE UNSTAINED CELL # 0.2 K/mm3 (0.0-0.4); LYMPH # 3.7 K/mm3 (1.5-6.5); LYMPH % 20.1 % (24.0-44.0); MEAN CORPUSCULAR HEMOGLOBIN 29.8 pg (27.0-33.0); MEAN CORPUSCULAR HGB CONC 34.9 g/dl (32.0-36.5); MEAN CORPUSCULAR VOLUME 85.4 fl (80.0-96.0); MONO # 0.8 K/mm3 (0.0-0.8); MONO % 4.8 % (0.0-5.0); NEUTROPHILS # 12.9 K/mm3 (1.8-7.7); PLATELET COUNT, AUTOMATED 135 k/mm3 (150-450); WHITE BLOOD COUNT 17.7 K/mm3 (4.0-10.0)
[2016-09-30] MEDS: PERCOCET 5MG/325MG TAB PO PRN (23:50)
[2016-09-30 23:58] LABS: INR 1.01
[2016-10-01] VITALS (9 sets, daily range): BP systolic 115–148; BP diastolic 60–93
[2016-10-01] MEDS: LR 1,000 ML IV SCH (03:52)
[2016-10-01] MEDS: AMPICILLIN SOD/SULBACTAM SOD 3 GM in D5W MINI-BAG PLUS 100 ML IV SCH ×4 (03:57→21:49)
[2016-10-01] MEDS ORDERED: IBUPROFEN 800 MG TAB PO SCH ×2 (05:00→08:00)
[2016-10-01] MEDS: IBUPROFEN 800 MG TAB PO SCH ×3 (05:33→21:51)
[2016-10-01 07:26] LABS: BASO % 0.3 % (0.0-1.0); EOS # 0.2 K/mm3 (0.0-0.50); EOS % 1.2 % (0.0-3.0); LARGE UNSTAINED CELL # 0.2 K/mm3 (0.0-0.4); LARGE UNSTAINED CELL % 1.2 % (0.0-4.0); LYMPH % 17.9 % (24.0-44.0); MEAN CORPUSCULAR HEMOGLOBIN 30.1 pg (27.0-33.0); MEAN CORPUSCULAR VOLUME 86.1 fl (80.0-96.0); MONO # 0.9 K/mm3 (0.0-0.8); MONO % 5.5 % (0.0-5.0); NEUTROPHILS # 11.5 K/mm3 (1.8-7.7); NEUTROPHILS % 73.9 % (36.0-66.0); PLATELET COUNT, AUTOMATED 138 k/mm3 (150-450); RED CELL DISTRIBUTION WIDTH 15.1 % (11.5-14.5); WHITE BLOOD COUNT 15.6 K/mm3 (4.0-10.0)
[2016-10-01 07:50] LABS: ALBUMIN 1.7 GM/DL (3.2-5.2); ALBUMIN/GLOBULIN RATIO 0.71 (1.00-1.93); ALKALINE PHOSPHATASE 75 U/L (45-117); ALT/SGPT 14 U/L (12-78); ANION GAP 9 MEQ/L (8-16); AST/SGOT 28 U/L (15-37); BILIRUBIN,TOTAL 0.5 MG/DL (0.2-1.0); BLOOD UREA NITROGEN 11 MG/DL (7-18); CALCIUM LEVEL 6.8 MG/DL (8.5-10.1); CARBON DIOXIDE LEVEL 21 MEQ/L (21-32); CHLORIDE LEVEL 112 MEQ/L (98-107); CREATININE FOR GFR 0.64 MG/DL (0.55-1.02); GLOMERULAR FILTRATION RATE > 60.0 (>60); GLUCOSE, FASTING 77 MG/DL (70-105); MAGNESIUM LEVEL 1.6 MG/DL (1.8-2.4); POTASSIUM SERUM 4.1 MEQ/L (3.5-5.1); SODIUM LEVEL 142 MEQ/L (136-145); TOTAL PROTEIN 4.1 GM/DL (6.4-8.2)
[2016-10-01] MEDS ORDERED: MAG SULF 1GM/100ML (MAG RUN) 1 GM in APPROPRIATE DILUENT 1 EA IV ONE (08:15)
--- NOTE | 2016-10-01 08:23 | IPNPDOC ---
Text Note Date of Service The patient was seen on 10/01/16. NOTE Prog note pod1, ICU day 2 Pain controlled with Motrin and 1 single percocet dose overnight. vitals are stable. Received 1 U PRBC's yesterday and had a neg CT-A/P. Is in good spirits and denies VB/CP/LP/SOB. Bonding with , has seen him X2. Lost left PIV. Took 6 sticks for her AM draw today. Current labs show (q6hrs) hct 25.7 to 22.2, plt 132 to 138 fibr 402 to 555, nl coags as well Nl CMP this AM. UO 200-350/hr VSS throughout the night -NAD A&O -sitting on the edge of the bed, -CTAB RRR, no wheezing, crackles -Abd soft appropriate tenderness around the incision, bandage removed, john intact, clean and dry no erythema -Ext 1+ edema but improving, no calf or tenderness/pain -Right PIV not red, slight tenderness a/p: Will place PICC line due to questionable access and signif edema. Due to FVL heterozygote, will also start lovenox 40 mg qday today after speaking with ICU attending. Cont q 6 hr labs and tele. Doing very well. Very much appreciate the help of the ICU staff and physicians. Sessions Isa NIX, I+O Isa LANDRY, I+O Laboratory Tests 09/30/16 10:53 Red Blood Count 2.79 L, Mean Corpuscular Volume 84.3, Mean Corpuscular Hemoglobin 29.4, Mean Corpuscular Hemoglobin Concent 34.9, Red Cell Distribution Width 14.8 H, Neutrophils (%) (Auto) 72.1 H, Lymphocytes (%) (Auto ) 18.6 L, Monocytes (%) (Auto) 7.1 H, Eosinophils (%) (Auto) 0.3, Basophils (%) (Auto) 0.1, Neutrophils # (Auto) 10.9 H, Lymphocytes # (Auto) 2.8, Monocytes # ( Auto) 1.1 H, Eosinophils # (Auto) 0.0, Basophils # (Auto) 0.0 09/30/16 14:19 Red Blood Count 2.59 L, Mean Corpuscular Volume 84.2, Mean Corpuscular Hemoglobin 29.5, Mean Corpuscular Hemoglobin Concent 35.0, Red Cell Distribution Width 15.0 H, Neutrophils (%) (Auto) 68.6 H, Lymphocytes (%) (Auto ) 22.1 L, Monocytes (%) (Auto) 7.0 H, Eosinophils (%) (Auto) 0.5, Basophils (%) (Auto) 0.2, Neutrophils # (Auto) 10.6 H, Lymphocytes # (Auto) 3.7, Monocytes # ( Auto) 1.1 H, Eosinophils # (Auto) 0.1, Basophils # (Auto) 0.0 09/30/16 18:11 Red Blood Count 2.94 L, Mean Corpuscular Volume 87.4, Mean Corpuscular Hemoglobin 30.5, Mean Corpuscular Hemoglobin Concent 34.8, Red Cell Distribution Width 14.6 H 09/30/16 23:37 Red Blood Count 2.92 L, Mean Corpuscular Volume 85.4, Mean Corpuscular Hemoglobin 29.8, Mean Corpuscular Hemoglobin Concent 34.9, Red Cell Distribution Width 15.0 H, Neutrophils (%) (Auto) 73.0 H, Lymphocytes (%) (Auto ) 20.1 L, Monocytes (%) (Auto) 4.8, Eosinophils (%) (Auto) 0.9, Basophils (%) ( Auto) 0.2, Neutrophils # (Auto) 12.9 H, Lymphocytes # (Auto) 3.7, Monocytes # ( Auto) 0.8, Eosinophils # (Auto) 0.2, Basophils # (Auto) 0.0 10/01/16 07:04 Red Blood Count 2.58 L, Mean Corpuscular Volume 86.1, Mean Corpuscular Hemoglobin 30.1, Mean Corpuscular Hemoglobin Concent 35.0, Red Cell Distribution Width 15.1 H, Neutrophils (%) (Auto) 73.9 H, Lymphocytes (%) (Auto ) 17.9 L, Monocytes (%) (Auto) 5.5 H, Eosinophils (%) (Auto) 1.2, Basophils (%) (Auto) 0.3, Neutrophils # (Auto) 11.5 H, Lymphocytes # (Auto) 3.0, Monocytes # ( Auto) 0.9 H, Eosinophils # (Auto) 0.2, Basophils # (Auto) 0.0, Calcium Level 6.8 L, Aspartate Amino Transf (AST/SGOT) 28, Alanine Aminotransferase (ALT/SGPT ) 14, Alkaline Phosphatase 75, Total Bilirubin 0.5, Total Protein 4.1 L, Albumin 1.7 L Vital Signs Date Time Temp Pulse Resp B/P (MAP) Pulse Ox O2 Delivery O2 Flow Rate FiO2 10/01/16 07:55 97.5 88 16 148/87 (107) 96 Room Air 09/30/16 07:21 2.0 I&O- Last 24 Hours up to 6 AM 10/01/16 06:00 Intake Total 3095 ml Output Total 3025 ml Balance 70 ml SESSIONS,VIANEY Marie MD October 01, 2016 08:23
[2016-10-01] MEDS: DOCUSATE SODIUM 100 MG CAP PO SCH ×2 (09:00→21:51)
[2016-10-01] MEDS: PRENATAL VITAMIN TAB PO SCH (09:00)
[2016-10-01] MEDS: ENOXAPARIN 40 MG/0.4 ML SYRINGE (J1650) SC SCH (09:01)
[2016-10-01 09:23] LABS: ERYTHROCYTE SEDIMENTATION RATE 65 mm/hr (0-20)
[2016-10-01] MEDS: PERCOCET 5MG/325MG TAB PO PRN ×2 (10:31→21:50)
[2016-10-01 12:32] LABS: BASO % 0.2 % (0.0-1.0); EOS # 0.2 K/mm3 (0.0-0.50); EOS % 1.1 % (0.0-3.0); LARGE UNSTAINED CELL # 0.2 K/mm3 (0.0-0.4); LARGE UNSTAINED CELL % 0.9 % (0.0-4.0); LYMPH # 2.9 K/mm3 (1.5-6.5); LYMPH % 15.6 % (24.0-44.0); MEAN CORPUSCULAR HEMOGLOBIN 30.2 pg (27.0-33.0); MEAN CORPUSCULAR HGB CONC 34.7 g/dl (32.0-36.5); MEAN CORPUSCULAR VOLUME 87.1 fl (80.0-96.0); MONO # 0.8 K/mm3 (0.0-0.8); MONO % 4.7 % (0.0-5.0); NEUTROPHILS # 13.4 K/mm3 (1.8-7.7); NEUTROPHILS % 77.4 % (36.0-66.0); PLATELET COUNT, AUTOMATED 148 k/mm3 (150-450); RED CELL DISTRIBUTION WIDTH 15.2 % (11.5-14.5); WHITE BLOOD COUNT 17.3 K/mm3 (4.0-10.0)
[2016-10-01 12:37] LABS: INR 0.98
--- NOTE | 2016-10-01 14:44 | IPNPDOC ---
Text Note Date of Service The patient was seen on 10/01/16. NOTE Subjective: Pt states she is feeling much better. Denies CP/SOB/palpitations. No N/V. Mild pain at the incision site. Objective: Vitals: (see below) General: No acute distress, laying comfortably in bed. HEENT: Moist mucous membranes. Neck: No JVD or lymphadenopathy Cardiac: RRR, No murmurs Pulm: Clear to auscultation b/l. No wheezing, rhonchi Abd: Mild tenderness at the incision site. /ND + BS Ext: Trace to 1+ pitting edema in upper and lower ext. No cyanosis Labs (see below) Images: Assessment/Plan 1. Post hemorrhage and DIC s/p HYST, 9U PRBC, 5 FFP, 1 Platelet. Fibrinogen/PTT/PT improved. Hb stable. No need for transfusion at this time. Cont to monitor. Appreciate Dr. Maynard's input. 2. H/o Factor 5 Leiden, heterozygous - pt states she saw heme/onc in February and told that she does not need to be on Lovenox that was started in January. Lovenox was discontinued. No history or family history of blood clots. 3. Gestational hypertension and preeclampsia, status post induction of followed by for failure to descend. 4. Leukocytosis and elevated CRP - Likely reactive. No source of infection - CXR negative. UA pending. Blood cultures to be sent today. On Unasyn post HYST. 5. Hypomagnesemia - replaced. DVT prophy: Lovenox VS,Fishbone, I+O VS, Fishbone, I+O Laboratory Tests 09/30/16 14:19 Red Blood Count 2.59 L, Mean Corpuscular Volume 84.2, Mean Corpuscular Hemoglobin 29.5, Mean Corpuscular Hemoglobin Concent 35.0, Red Cell Distribution Width 15.0 H, Neutrophils (%) (Auto) 68.6 H, Lymphocytes (%) (Auto ) 22.1 L, Monocytes (%) (Auto) 7.0 H, Eosinophils (%) (Auto) 0.5, Basophils (%) (Auto) 0.2, Neutrophils # (Auto) 10.6 H, Lymphocytes # (Auto) 3.7, Monocytes # ( Auto) 1.1 H, Eosinophils # (Auto) 0.1, Basophils # (Auto) 0.0 09/30/16 18:11 Red Blood Count 2.94 L, Mean Corpuscular Volume 87.4, Mean Corpuscular Hemoglobin 30.5, Mean Corpuscular Hemoglobin Concent 34.8, Red Cell Distribution Width 14.6 H 09/30/16 23:37 Red Blood Count 2.92 L, Mean Corpuscular Volume 85.4, Mean Corpuscular Hemoglobin 29.8, Mean Corpuscular Hemoglobin Concent 34.9, Red Cell Distribution Width 15.0 H, Neutrophils (%) (Auto) 73.0 H, Lymphocytes (%) (Auto ) 20.1 L, Monocytes (%) (Auto) 4.8, Eosinophils (%) (Auto) 0.9, Basophils (%) ( Auto) 0.2, Neutrophils # (Auto) 12.9 H, Lymphocytes # (Auto) 3.7, Monocytes # ( Auto) 0.8, Eosinophils # (Auto) 0.2, Basophils # (Auto) 0.0 10/01/16 07:04 Red Blood Count 2.58 L, Mean Corpuscular Volume 86.1, Mean Corpuscular Hemoglobin 30.1, Mean Corpuscular Hemoglobin Concent 35.0, Red Cell Distribution Width 15.1 H, Neutrophils (%) (Auto) 73.9 H, Lymphocytes (%) (Auto ) 17.9 L, Monocytes (%) (Auto) 5.5 H, Eosinophils (%) (Auto) 1.2, Basophils (%) (Auto) 0.3, Neutrophils # (Auto) 11.5 H, Lymphocytes # (Auto) 3.0, Monocytes # ( Auto) 0.9 H, Eosinophils # (Auto) 0.2, Basophils # (Auto) 0.0, Calcium Level 6.8 L, Aspartate Amino Transf (AST/SGOT) 28, Alanine Aminotransferase (ALT/SGPT ) 14, Alkaline Phosphatase 75, Total Bilirubin 0.5, Total Protein 4.1 L, Albumin 1.7 L 10/01/16 12:18 Red Blood Count 2.72 L, Mean Corpuscular Volume 87.1, Mean Corpuscular Hemoglobin 30.2, Mean Corpuscular Hemoglobin Concent 34.7, Red Cell Distribution Width 15.2 H, Neutrophils (%) (Auto) 77.4 H, Lymphocytes (%) (Auto ) 15.6 L, Monocytes (%) (Auto) 4.7, Eosinophils (%) (Auto) 1.1, Basophils (%) ( Auto) 0.2, Neutrophils # (Auto) 13.4 H, Lymphocytes # (Auto) 2.9, Monocytes # ( Auto) 0.8, Eosinophils # (Auto) 0.2, Basophils # (Auto) 0.0 Vital Signs Date Time Temp Pulse Resp B/P (MAP) Pulse Ox O2 Delivery O2 Flow Rate FiO2 10/01/16 12:00 98.8 100 16 134/74 (94) 94 Room Air 09/30/16 07:21 2.0 I&O- Last 24 Hours up to 6 AM 10/01/16 06:00 Intake Total 3095 ml Output Total 3025 ml Balance 70 ml JOSE ANGEL LI MD October 01, 2016 14:44
--- NOTE | 2016-10-01 16:49 | IPNPDOC ---
Text Note Date of Service The patient was seen on 10/01/16. NOTE Saw pt, she is sitting on the edge of the bed and in good spirits, laughing and smiling Lovenox started, given this AM PICC line successfully placed earlier ICU attending ordered blood cx's this afternoon, Noon labs: hcg 8.2, hct 23.7, WBC 17.3 with 77.4 N's, plt 148, Fibr 596, nl coags Vitals stable Doing very well, Nursing the baby when we left the room. Will see in the AM. Will watch blood cx's closely. Sessions Isa NIX, I+O VSIsa I+O Laboratory Tests 09/30/16 18:11 Red Blood Count 2.94 L, Mean Corpuscular Volume 87.4, Mean Corpuscular Hemoglobin 30.5, Mean Corpuscular Hemoglobin Concent 34.8, Red Cell Distribution Width 14.6 H 09/30/16 23:37 Red Blood Count 2.92 L, Mean Corpuscular Volume 85.4, Mean Corpuscular Hemoglobin 29.8, Mean Corpuscular Hemoglobin Concent 34.9, Red Cell Distribution Width 15.0 H, Neutrophils (%) (Auto) 73.0 H, Lymphocytes (%) (Auto ) 20.1 L, Monocytes (%) (Auto) 4.8, Eosinophils (%) (Auto) 0.9, Basophils (%) ( Auto) 0.2, Neutrophils # (Auto) 12.9 H, Lymphocytes # (Auto) 3.7, Monocytes # ( Auto) 0.8, Eosinophils # (Auto) 0.2, Basophils # (Auto) 0.0 10/01/16 07:04 Red Blood Count 2.58 L, Mean Corpuscular Volume 86.1, Mean Corpuscular Hemoglobin 30.1, Mean Corpuscular Hemoglobin Concent 35.0, Red Cell Distribution Width 15.1 H, Neutrophils (%) (Auto) 73.9 H, Lymphocytes (%) (Auto ) 17.9 L, Monocytes (%) (Auto) 5.5 H, Eosinophils (%) (Auto) 1.2, Basophils (%) (Auto) 0.3, Neutrophils # (Auto) 11.5 H, Lymphocytes # (Auto) 3.0, Monocytes # ( Auto) 0.9 H, Eosinophils # (Auto) 0.2, Basophils # (Auto) 0.0, Calcium Level 6.8 L, Aspartate Amino Transf (AST/SGOT) 28, Alanine Aminotransferase (ALT/SGPT ) 14, Alkaline Phosphatase 75, Total Bilirubin 0.5, Total Protein 4.1 L, Albumin 1.7 L 10/01/16 12:18 Red Blood Count 2.72 L, Mean Corpuscular Volume 87.1, Mean Corpuscular Hemoglobin 30.2, Mean Corpuscular Hemoglobin Concent 34.7, Red Cell Distribution Width 15.2 H, Neutrophils (%) (Auto) 77.4 H, Lymphocytes (%) (Auto ) 15.6 L, Monocytes (%) (Auto) 4.7, Eosinophils (%) (Auto) 1.1, Basophils (%) ( Auto) 0.2, Neutrophils # (Auto) 13.4 H, Lymphocytes # (Auto) 2.9, Monocytes # ( Auto) 0.8, Eosinophils # (Auto) 0.2, Basophils # (Auto) 0.0 Vital Signs Date Time Temp Pulse Resp B/P (MAP) Pulse Ox O2 Delivery O2 Flow Rate FiO2 10/01/16 12:00 98.8 100 16 134/74 (94) 94 Room Air 09/30/16 07:21 2.0 I&O- Last 24 Hours up to 6 AM 10/01/16 06:00 Intake Total 3095 ml Output Total 3025 ml Balance 70 ml SESSIONS,VIANEY Marie MD October 01, 2016 16:49
[2016-10-01] MEDS: SODIUM CHLORIDE 0.9% INJ 10 ML SYR IV SCH (18:01)
--- NOTE | 2016-10-01 18:21 | RO ---
DATE OF PROCEDURE: 09/30/2016 PREPROCEDURE DIAGNOSIS: Persistent hemorrhage despite successful Bakri balloon placement approximately 1 hour prior. POSTPROCEDURE DIAGNOSIS: Persistent hemorrhage despite successful Bakri balloon placement approximately 1 hour prior. PROCEDURE: abdominal hysterectomy. SURGEON: Dr. Howard Christensen AIRFRAME AND POWERPLANT TECHNICIAN: Dr. Bedolla and Dr. Miles ANESTHESIA: General endotracheal anesthesia. ESTIMATED BLOOD LOSS: 1000 mL in the post-anesthesia care unit (PACU) with another 100 mL in the operating room. DRAINS: 100 mL of urine in the Asif catheter. TRANSFUSION: Two liters of lactated Ringer's, two units of packed red blood cells, two units of fresh frozen plasma. SPECIMENS REMOVED: Uterus and cervix. INDICATION: Please see my prior dictation of the exploratory laparotomy and Bakri balloon placement. The patient was watched closely in the PACU and for approximately 1 hour showed no signs of abnormal blood pressures, or tachycardia , or internal bleeding, or vaginal bleeding. However, after the patient was significantly awake and mentating normally, she actually alerted us to the fact that she was bleeding heavily. We then pulled back the blankets and sheets, which revealed a very brisk amount of bleeding coming both from the vagina as well as the drainage port for the Bakri balloon. I attempted to massage her uterus at that time, which only increased the rate of the bleeding, which I attempted for a few minutes, at which point her blood pressure began to drop and her heart rate began to increase. I immediately had the team mobilize to perform an emergent hysterectomy. Her was present at this time due to her having been doing so well, and I explained to him the emergent nature of the surgery. Once again, he and the patient both gave verbal consent to proceed with abdominal hysterectomy due to need for preservation of life. DESCRIPTION OF PROCEDURE: The patient was transported very quickly, with anesthesia and the operating room upholstery tech at the bedside, to the operating room where we again did not have time to do a preoperative surgical sponge or instrument count due to the patient's vital signs precipitously changing. A splash prep with Betadine was performed. She was prepped and draped in normal sterile fashion. We removed exactly as we had done in the prior take back the skin closure sutures, the fascial closure sutures, the peritoneal closure sutures and took down the Bakri balloon from below. It came out intact at which point we proceeded with the hysterectomy and with bilateral Simon clamps, clamped the utero-ovarian ligament bilaterally, transected it and then marched down the uterus with Simon clamps down to the layer of the cardinal ligament and the cervix, at which point we came across the cervix bilaterally and amputated the uterus. After the uterus was removed, we took a breath, and ascertained that the patient was in stable condition from the anesthesia team. Each Simon clamp was then Simno stitched and removed. This was done down to the layer of the vaginal cuff at which point the vaginal cuff was closed with [id number] sutures. A very thorough exam of all of the operative pedicles showed a small amount of bleeding on the left adnexa, which was surgically addressed with [id number] sutures and hemostasis was eventually achieved. Of note, on the left pelvic sidewall, just distal to the infundibulopelvic ligament, there was an approximately golf ball sized clot in the retroperitoneum that made the tissue surrounding it ratty and difficult to sew. However, with pressure and a judicious amount of suture, we were able to obtain hemostasis over this area as well. Copious irrigation was performed into the abdomen and pelvis, which revealed no bleeding, no clots. This was all suctioned free, and the peritoneum was closed with #2-0 Vicryl, the fascia was closed with #0 Vicryl and the skin was closed with john. The patient was transferred to the PACU in stable condition after an x-ray confirmed no intraabdominal surgical instruments or sponges. The patient will be maintained on Unasyn 3 grams IV every 6 hours and watched very closely in the intensive care unit (ICU) with the assistance of the hospitalist team and ICU nurses. Of note, after the uterus was removed and her skin was closed, the specimen was examined and the paper thin fundus, approximately a quarter sized area, was again noted that was seen at the time of delivery. Please see that dictation from the day prior. I assume that this is the culprit or the area on her uterus that would not firm up and continued to bleed, which caused her hemorrhage. MICA
[2016-10-01 18:24] LABS: BASO % 0.1 % (0.0-1.0); EOS # 0.2 K/mm3 (0.0-0.50); EOS % 1.2 % (0.0-3.0); LARGE UNSTAINED CELL # 0.2 K/mm3 (0.0-0.4); LYMPH # 3.4 K/mm3 (1.5-6.5); LYMPH % 20.4 % (24.0-44.0); MEAN CORPUSCULAR HGB CONC 33.9 g/dl (32.0-36.5); MEAN CORPUSCULAR VOLUME 88.6 fl (80.0-96.0); MONO # 0.7 K/mm3 (0.0-0.8); MONO % 4.2 % (0.0-5.0); NEUTROPHILS # 12.2 K/mm3 (1.8-7.7); PLATELET COUNT, AUTOMATED 160 k/mm3 (150-450); WHITE BLOOD COUNT 16.7 K/mm3 (4.0-10.0)
[2016-10-01 18:38] LABS: INR 0.96
[2016-10-02] VITALS (8 sets, daily range): BP systolic 124–160; BP diastolic 78–96
[2016-10-02] LABS: BASO % 0.3 % (0.0-1.0); EOS # 0.3 K/mm3 (0.0-0.50); EOS % 2.4 % (0.0-3.0); LARGE UNSTAINED CELL # 0.2 K/mm3 (0.0-0.4); LARGE UNSTAINED CELL % 1.1 % (0.0-4.0); LYMPH # 3.4 K/mm3 (1.5-6.5); LYMPH % 23.1 % (24.0-44.0); MEAN CORPUSCULAR HEMOGLOBIN 29.6 pg (27.0-33.0); MEAN CORPUSCULAR HGB CONC 34.2 g/dl (32.0-36.5); MEAN CORPUSCULAR VOLUME 86.5 fl (80.0-96.0); MONO # 0.7 K/mm3 (0.0-0.8); NEUTROPHILS # 9.6 K/mm3 (1.8-7.7); NEUTROPHILS % 68.1 % (36.0-66.0); PLATELET COUNT, AUTOMATED 163 k/mm3 (150-450); RED CELL DISTRIBUTION WIDTH 15.2 % (11.5-14.5); WHITE BLOOD COUNT 14.1 K/mm3 (4.0-10.0)
[2016-10-02 00:06] LABS: INR 0.9
[2016-10-02] MEDS: AMPICILLIN SOD/SULBACTAM SOD 3 GM in D5W MINI-BAG PLUS 100 ML IV SCH ×4 (04:47→22:51)
[2016-10-02] MEDS: SODIUM CHLORIDE 0.9% INJ 10 ML SYR IV SCH ×2 (05:51→18:09)
[2016-10-02] MEDS: IBUPROFEN 800 MG TAB PO SCH ×3 (05:51→22:52)
[2016-10-02 06:18] LABS: BASO % 0.4 % (0.0-1.0); EOS # 0.3 K/mm3 (0.0-0.50); LARGE UNSTAINED CELL # 0.1 K/mm3 (0.0-0.4); LARGE UNSTAINED CELL % 0.9 % (0.0-4.0); LYMPH # 3.1 K/mm3 (1.5-6.5); LYMPH % 21.3 % (24.0-44.0); MEAN CORPUSCULAR HEMOGLOBIN 29.9 pg (27.0-33.0); MEAN CORPUSCULAR HGB CONC 34.2 g/dl (32.0-36.5); MEAN CORPUSCULAR VOLUME 87.3 fl (80.0-96.0); MONO # 0.5 K/mm3 (0.0-0.8); MONO % 3.8 % (0.0-5.0); NEUTROPHILS # 10.1 K/mm3 (1.8-7.7); NEUTROPHILS % 71.6 % (36.0-66.0); PLATELET COUNT, AUTOMATED 183 k/mm3 (150-450); RED CELL DISTRIBUTION WIDTH 15.3 % (11.5-14.5)
[2016-10-02 06:27] LABS: INR 0.89
[2016-10-02 06:32] LABS: ALT/SGPT 12 U/L (12-78); AST/SGOT 23 U/L (15-37); BILIRUBIN,TOTAL 0.4 MG/DL (0.2-1.0); CREATININE FOR GFR 0.62 MG/DL (0.55-1.02); GLOMERULAR FILTRATION RATE > 60.0 (>60); URIC ACID 5.5 MG/DL (2.6-6.0)
[2016-10-02 06:35] LABS: ALBUMIN 1.8 GM/DL (3.2-5.2); ALBUMIN/GLOBULIN RATIO 0.69 (1.00-1.93); ALKALINE PHOSPHATASE 99 U/L (45-117); ALT/SGPT 13 U/L (12-78); ANION GAP 7 MEQ/L (8-16); AST/SGOT 24 U/L (15-37); BILIRUBIN,TOTAL 0.5 MG/DL (0.2-1.0); BLOOD UREA NITROGEN 9 MG/DL (7-18); CARBON DIOXIDE LEVEL 25 MEQ/L (21-32); CHLORIDE LEVEL 111 MEQ/L (98-107); CREATININE FOR GFR 0.61 MG/DL (0.55-1.02); GLOMERULAR FILTRATION RATE > 60.0 (>60); GLUCOSE, FASTING 73 MG/DL (70-105); POTASSIUM SERUM 3.8 MEQ/L (3.5-5.1); SODIUM LEVEL 143 MEQ/L (136-145); TOTAL PROTEIN 4.4 GM/DL (6.4-8.2)
[2016-10-02] MEDS ORDERED: FUROSEMIDE 20 MG/2 ML VIAL (J1940) IV ONE (08:15)
--- NOTE | 2016-10-02 08:34 | IPNPDOC ---
Text Note Date of Service The patient was seen on 10/02/16. NOTE Prog note pod2, ICU day 3 Pain controlled with Motrin and rare single percocets. vitals are stable. No blood products needed. Is in good spirits and denies VB/CP/LP/SOB. Bonding with , has seen him and able also to feed several times. PICC successfully placed yesterday. Current labs show (q6hrs) hct 22.1, plt 183 fibr 582, normal coags Nl CMP, CMP this AM. CRP 10.5 Pre-E panel normal UO ~150/hr VSSAF throughout the night -NAD A&O -sitting on the edge of the bed, -CTAB RRR, no wheezing, crackles -Abd soft appropriate tenderness around the incision, john intact, clean and dry no erythema, single staple at left edge removed -Lower Ext 1+ edema but improving, no calf or tenderness/pain, Upper ext also 1- 2+ edema -PICC line normal a/p: Doing well, afebrile, Signif edema especially to extremities. As is day 3 and BP's have been stable will give 10 mg Lasix and check a K this evening. Nl Pre-E profile, no S/S Pre-E. 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 I/O q 4 hrs. Cont Unasyn until tomorrow as loing as remains afebrile, and watch temps closely. Likely [place] to [facility] this afternoon. Cont q 6 hr labs and tele until [place]. Very much appreciate the help of the ICU staff and physicians. Sessions Isa NIX, I+O Isa LANDRY I+O Laboratory Tests 10/01/16 12:18 Red Blood Count 2.72 L, Mean Corpuscular Volume 87.1, Mean Corpuscular Hemoglobin 30.2, Mean Corpuscular Hemoglobin Concent 34.7, Red Cell Distribution Width 15.2 H, Neutrophils (%) (Auto) 77.4 H, Lymphocytes (%) (Auto ) 15.6 L, Monocytes (%) (Auto) 4.7, Eosinophils (%) (Auto) 1.1, Basophils (%) ( Auto) 0.2, Neutrophils # (Auto) 13.4 H, Lymphocytes # (Auto) 2.9, Monocytes # ( Auto) 0.8, Eosinophils # (Auto) 0.2, Basophils # (Auto) 0.0 10/01/16 17:57 Red Blood Count 2.58 L, Mean Corpuscular Volume 88.6, Mean Corpuscular Hemoglobin 30.0, Mean Corpuscular Hemoglobin Concent 33.9, Red Cell Distribution Width 15.0 H, Neutrophils (%) (Auto) 73.0 H, Lymphocytes (%) (Auto ) 20.4 L, Monocytes (%) (Auto) 4.2, Eosinophils (%) (Auto) 1.2, Basophils (%) ( Auto) 0.1, Neutrophils # (Auto) 12.2 H, Lymphocytes # (Auto) 3.4, Monocytes # ( Auto) 0.7, Eosinophils # (Auto) 0.2, Basophils # (Auto) 0.0 10/01/16 23:45 Red Blood Count 2.38 L, Mean Corpuscular Volume 86.5, Mean Corpuscular Hemoglobin 29.6, Mean Corpuscular Hemoglobin Concent 34.2, Red Cell Distribution Width 15.2 H, Neutrophils (%) (Auto) 68.1 H, Lymphocytes (%) (Auto ) 23.1 L, Monocytes (%) (Auto) 5.0, Eosinophils (%) (Auto) 2.4, Basophils (%) ( Auto) 0.3, Neutrophils # (Auto) 9.6 H, Lymphocytes # (Auto) 3.4, Monocytes # ( Auto) 0.7, Eosinophils # (Auto) 0.3, Basophils # (Auto) 0.0 10/02/16 05:52 Calcium Level 7.0 L, Aspartate Amino Transf (AST/SGOT) 24, Alanine Aminotransferase (ALT/SGPT) 13, Alkaline Phosphatase 99, Total Bilirubin 0.5, Total Protein 4.4 L, Albumin 1.8 L, Lactate Dehydrogenase 223, Uric Acid 5.5 10/02/16 05:55 Red Blood Count 2.53 L, Mean Corpuscular Volume 87.3, Mean Corpuscular Hemoglobin 29.9, Mean Corpuscular Hemoglobin Concent 34.2, Red Cell Distribution Width 15.3 H, Neutrophils (%) (Auto) 71.6 H, Lymphocytes (%) (Auto ) 21.3 L, Monocytes (%) (Auto) 3.8, Eosinophils (%) (Auto) 2.0, Basophils (%) ( Auto) 0.4, Neutrophils # (Auto) 10.1 H, Lymphocytes # (Auto) 3.1, Monocytes # ( Auto) 0.5, Eosinophils # (Auto) 0.3, Basophils # (Auto) 0.0 Vital Signs Date Time Temp Pulse Resp B/P (MAP) Pulse Ox O2 Delivery O2 Flow Rate FiO2 10/02/16 07:36 98.3 86 16 124/87 (99) 96 Room Air 09/30/16 07:21 2.0 I&O- Last 24 Hours up to 6 AM 10/02/16 06:00 Intake Total 3080 ml Output Total 3480 ml Balance -400 ml SESSIONS,VIANEY Marie MD October 02, 2016 08:34
[2016-10-02] MEDS: DOCUSATE SODIUM 100 MG CAP PO SCH ×2 (08:55→22:51)
[2016-10-02] MEDS: ENOXAPARIN 40 MG/0.4 ML SYRINGE (J1650) SC SCH (08:55)
[2016-10-02] MEDS: PRENATAL VITAMIN TAB PO SCH (08:55)
--- NOTE | 2016-10-02 09:11 | REP ---
Procedure: PICC line insertion with Yinka The procedure was performed under the direct supervision of Dr. Lange. The risks and benefits of the procedure were explained to the patient and informed consent was obtained. The right brachial vein was localized using ultrasound guidance. The skin was prepped and draped in a sterile fashion. 2% lidocaine was used as a local anesthetic. Using ultrasound guidance the brachial vein was cannulated and a 0.018 guidewire was inserted and advanced to the SVC using fluoroscopic guidance. The needle was removed and a 5.5 Nepali dilator and peel-away sheath was inserted over the guide wire. A 5.5 Nepali dual lumen catheter was cut to length of 34 cm. The dilator was removed and the catheter was inserted over the guide wire with the tip ending in the SVC. The peel-away sheath was removed and the catheter was flushed with heparinized saline as per Hospital protocol. The catheter was affixed to the skin and a sterile dressing was applied. The the patient tolerated the procedure well and there were no immediate complications. 15 seconds of fluoro time was utilized for this procedure. Reviewed by WILLIAM Wooten 10/01/2016 07:07 PSigned by Breezy Lange MD 10/02/2016 09:02 A
[2016-10-02] MEDS: PERCOCET 5MG/325MG TAB PO PRN (10:35)
[2016-10-02] MEDS: SODIUM CHLORIDE 0.9% INJ 10 ML SYR IV PRN (12:16)
[2016-10-02 12:47] LABS: BASO % 0.2 % (0.0-1.0); EOS # 0.2 K/mm3 (0.0-0.50); EOS % 1.5 % (0.0-3.0); LARGE UNSTAINED CELL # 0.1 K/mm3 (0.0-0.4); LARGE UNSTAINED CELL % 0.8 % (0.0-4.0); LYMPH # 2.8 K/mm3 (1.5-6.5); LYMPH % 18.6 % (24.0-44.0); MEAN CORPUSCULAR HEMOGLOBIN 30.7 pg (27.0-33.0); MEAN CORPUSCULAR HGB CONC 35.1 g/dl (32.0-36.5); MEAN CORPUSCULAR VOLUME 87.7 fl (80.0-96.0); MONO # 0.6 K/mm3 (0.0-0.8); MONO % 3.9 % (0.0-5.0); NEUTROPHILS % 75.1 % (36.0-66.0); PLATELET COUNT, AUTOMATED 194 k/mm3 (150-450); RED CELL DISTRIBUTION WIDTH 15.5 % (11.5-14.5); WHITE BLOOD COUNT 14.6 K/mm3 (4.0-10.0)
[2016-10-02 12:54] LABS: INR 0.95
--- NOTE | 2016-10-02 14:15 | IPNPDOC ---
Text Note Date of Service The patient was seen on 10/02/16. NOTE Subjective: Pt states she is feeling much better. Denies CP/SOB/palpitations. No N/V. Mild pain at the incision site. Objective: Vitals: (see below) General: No acute distress, laying comfortably in bed. HEENT: Moist mucous membranes. Neck: No JVD or lymphadenopathy Cardiac: RRR, No murmurs Pulm: Clear to auscultation b/l. No wheezing, rhonchi Abd: Mild tenderness at the incision site. /ND + BS Ext: Trace to 1+ pitting edema in upper and lower ext. No cyanosis Labs (see below) Images: Assessment/Plan 1. Post hemorrhage and DIC s/p HYST, 9U PRBC, 5 FFP, 1 Platelet. Fibrinogen/PTT/PT improved. Hb stable. No need for transfusion at this time. Cont to monitor. Appreciate Dr. Maynard's input. 2. H/o Factor 5 Leiden, heterozygous - pt states she saw heme/onc in February and told that she does not need to be on Lovenox that was started in January. Lovenox was discontinued. No history or family history of blood clots. 3. Gestational hypertension and preeclampsia, status post induction of followed by for failure to descend. 4. Leukocytosis and elevated CRP - Likely reactive. CRP improving. No source of infection - CXR negative. UA negative. Blood cultures pending. On Unasyn post HYST. DVT prophy: Lovenox Will sign off, please call if any acute changes/questions. VS,Fishbone, I+O VS, Fishbone, I+O Laboratory Tests 10/01/16 17:57 Red Blood Count 2.58 L, Mean Corpuscular Volume 88.6, Mean Corpuscular Hemoglobin 30.0, Mean Corpuscular Hemoglobin Concent 33.9, Red Cell Distribution Width 15.0 H, Neutrophils (%) (Auto) 73.0 H, Lymphocytes (%) (Auto ) 20.4 L, Monocytes (%) (Auto) 4.2, Eosinophils (%) (Auto) 1.2, Basophils (%) ( Auto) 0.1, Neutrophils # (Auto) 12.2 H, Lymphocytes # (Auto) 3.4, Monocytes # ( Auto) 0.7, Eosinophils # (Auto) 0.2, Basophils # (Auto) 0.0 10/01/16 23:45 Red Blood Count 2.38 L, Mean Corpuscular Volume 86.5, Mean Corpuscular Hemoglobin 29.6, Mean Corpuscular Hemoglobin Concent 34.2, Red Cell Distribution Width 15.2 H, Neutrophils (%) (Auto) 68.1 H, Lymphocytes (%) (Auto ) 23.1 L, Monocytes (%) (Auto) 5.0, Eosinophils (%) (Auto) 2.4, Basophils (%) ( Auto) 0.3, Neutrophils # (Auto) 9.6 H, Lymphocytes # (Auto) 3.4, Monocytes # ( Auto) 0.7, Eosinophils # (Auto) 0.3, Basophils # (Auto) 0.0 10/02/16 05:52 Calcium Level 7.0 L, Aspartate Amino Transf (AST/SGOT) 24, Alanine Aminotransferase (ALT/SGPT) 13, Alkaline Phosphatase 99, Total Bilirubin 0.5, Total Protein 4.4 L, Albumin 1.8 L, Lactate Dehydrogenase 223, Uric Acid 5.5 10/02/16 05:55 Red Blood Count 2.53 L, Mean Corpuscular Volume 87.3, Mean Corpuscular Hemoglobin 29.9, Mean Corpuscular Hemoglobin Concent 34.2, Red Cell Distribution Width 15.3 H, Neutrophils (%) (Auto) 71.6 H, Lymphocytes (%) (Auto ) 21.3 L, Monocytes (%) (Auto) 3.8, Eosinophils (%) (Auto) 2.0, Basophils (%) ( Auto) 0.4, Neutrophils # (Auto) 10.1 H, Lymphocytes # (Auto) 3.1, Monocytes # ( Auto) 0.5, Eosinophils # (Auto) 0.3, Basophils # (Auto) 0.0 10/02/16 12:13 Red Blood Count 2.51 L, Mean Corpuscular Volume 87.7, Mean Corpuscular Hemoglobin 30.7, Mean Corpuscular Hemoglobin Concent 35.1, Red Cell Distribution Width 15.5 H, Neutrophils (%) (Auto) 75.1 H, Lymphocytes (%) (Auto ) 18.6 L, Monocytes (%) (Auto) 3.9, Eosinophils (%) (Auto) 1.5, Basophils (%) ( Auto) 0.2, Neutrophils # (Auto) 11.0 H, Lymphocytes # (Auto) 2.8, Monocytes # ( Auto) 0.6, Eosinophils # (Auto) 0.2, Basophils # (Auto) 0.0 Vital Signs Date Time Temp Pulse Resp B/P (MAP) Pulse Ox O2 Delivery O2 Flow Rate FiO2 10/02/16 12:00 98.2 92 16 152/92 (112) 95 Room Air 09/30/16 07:21 2.0 I&O- Last 24 Hours up to 6 AM 10/02/16 06:00 Intake Total 3080 ml Output Total 3480 ml Balance -400 ml JOSE ANGEL LI MD October 02, 2016 14:14
--- NOTE | 2016-10-02 14:37 | RO ---
DATE OF PROCEDURE: 09/30/2016 PREPROCEDURE DIAGNOSES: hemorrhage, early disseminated intravascular coagulation (DIC). POSTPROCEDURE DIAGNOSES: hemorrhage, early disseminated intravascular coagulation (DIC). PROCEDURE: Exploratory laparotomy and Bakri balloon placement. SURGEON: Dr. Howard Christensen LAW EXAMINER: Dr. Lidia Bedolla ANESTHESIA: General endotracheal. ESTIMATED BLOOD LOSS: 3500 mL from the obstetrics unit post anesthesia care unit (PACU) to the end of the current operating room (OR) case. DRAINS: 250 mL of dark urine in the Asif catheter. TRANSFUSIONS: Received 6 units of packed red blood cells, 3 units of fresh frozen plasma, 1 unit of platelets, and 4200 mL of lactated Ringer's. SPECIMEN: None. INDICATION: Acute hemorrhage diagnosed in the obstetrics unit PACU. This initially had occurred approximately 30-45 minutes prior to needing surgery. The patient had bleeding that was more than average. The nurse appropriately called me. I did a bimanual exam and uterine massage and expressed approximately 500 mL of clot and active blood from the uterus. The uterus firmed up quickly. I administered one dose of Hemabate 250 mcg IM as well as a milligram of Cytotec per rectum. Her vital signs never changed, and she tolerated the procedure well. I was called back to her bedside approximately 45 minutes later when she was noted to have another significant amount of clots from the vagina, and her blood pressure was noted to have dropped slightly. I repeated the same maneuver with the bimanual massage and another easily 500 mL of clot and active bleeding came out. I made the decision at that time to return to the operating room, and the anesthesia team and OR technicians and OR nurses were mobilized. Informed verbal consent was obtained from the patient and her , and I told them my plan for a Bakri balloon placement. Of note, I tried to place the Bakri balloon in the PACU, but I was unable to get it past the cervix due to the patient not tolerating this attempt. I also informed them that it may be necessary to do a hysterectomy, which would preclude the possibility of having more children. The and the patient both gave me consent to do so, as this had now become a life-saving measure. There were several witnesses to this conversation, including WESLEY Hunter, on labor and delivery, WESLEY Alarcon on labor and delivery, and Dr. Lidia Bedolla. DESCRIPTION OF PROCEDURE: The patient was taken emergently on a gurney to the elevator down to the second floor where the OR team was waiting. There was no time for a preoperative sponge or instrument count due to the patient's vital signs, which had changed precipitously. The patient was moved to the operating room table. After a betadine dump prep, with scissors, we quickly removed the skin incision suture, the fascial incision suture, and the peritoneal closure. Blood was running through her IV at this point. Anesthesia was managing her blood pressures, fluids, and blood products. There was very little to no active bleeding from the uterine incision. The uterus was firm. There was, however, a significant amount of red-wine colored fluid in the abdomen, consistent with early DIC. We only sutured a small bleeding area at the left aspect of the uterine incision, as with the DIC, we did not want to create more problems. We then opened the midline of the uterine incision approximately 2 cm wide, placed the Bakri balloon through the incision, through the cervix, and out the vagina, where Fallon, one of the surgical technicians from labor and delivery was waiting, fully gowned but not sterile, to receive the Bakri and inflate the Bakri balloon per protocol. She then proceeded to fill the Bakri balloon with 420 mL of normal saline, and we kept our hands on the uterus assuring that it was filling adequately and in correct placement. There were never any problems with the uterine incision with the use of the Bakri balloon. We closed the uterine incision with #0 Vicryl after about half of the fluid was placed into the Bakri. The rest of the fluid was then placed, and with some amount of uterine massage both from the front and the back, we were able to eventually obtain hemostasis. For quite some time, there was a small amount of leakage from the vagina that we continued to watch closely with new checks every 5 minutes. It was not until a golfball sized clot was eventually expressed from the uterus that we obtained hemostasis. At this point as well, all the blood products that we had ordered had run in, and the anesthesia [place] a set of labs at 1 o'clock. The patient's PT was 17.7, her INR was 1.45, the PTT was 38.3, the fibrinogen was just over 200. The hemoglobin was 7.2 with hematocrit of 22.8, and platelets were 134. Therefore, the patient was in early DIC, but stable and not in danger of spontaneous bleeding from surgical edges or the mucosal orifices. We then watched the chucks between the patient's legs for approximately 45 minutes to an hour to ensure that she was indeed stable with the Bakri working as it was supposed to. We then closed the peritoneum with #3-0 Vicryl, the fascia with #0 Vicryl, and the skin with Monocryl, and transferred the patient to the post anesthesia care (PAC) unit in stable condition. Before moving, we again confirmed there was no active bleeding from the vagina, and the patient's vitals were stable. X-ray was performed in the room, which I reviewed immediately, which showed no retained sponges or surgical tools. This was done and read prior to moving the patient to the PACU. MICA
--- NOTE | 2016-10-02 17:12 | IPNPDOC ---
Text Note Date of Service The patient was seen on 10/02/16. NOTE Now transferred to [facility], saw her in the NICU nursing Darren. Pain controlled with Motrin and rare percocet. vitals have been stable. Is in good spirits and denies VB/CP/LP/SOB. Bonding with infant. No VB. PICC successfully placed yesterday and working well Noon labs show hct 22.0, plt 194 normal coags, fibr last several draws Nl CMP, Pre-E pnl last several draws UO vastly increased this AM with single dose 10 mg Lasix VSSAF NAD A&O not examined a/p: Doing well, afebrile, Signif edema especially to extremities. 10 mg Lasix with good response earlier. Will check a K this evening. 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 I/O q 4 hrs. Cont Unasyn until tomorrow AM as long as remains afebrile, and watch temps closely. After tonight , daily labs only. POC d/w Dr Aviles, kimberly tonhenrietta. Sessions MD LANDRY,Isa, I+O VS, Isa, I+O Laboratory Tests 10/01/16 17:57 Red Blood Count 2.58 L, Mean Corpuscular Volume 88.6, Mean Corpuscular Hemoglobin 30.0, Mean Corpuscular Hemoglobin Concent 33.9, Red Cell Distribution Width 15.0 H, Neutrophils (%) (Auto) 73.0 H, Lymphocytes (%) (Auto ) 20.4 L, Monocytes (%) (Auto) 4.2, Eosinophils (%) (Auto) 1.2, Basophils (%) ( Auto) 0.1, Neutrophils # (Auto) 12.2 H, Lymphocytes # (Auto) 3.4, Monocytes # ( Auto) 0.7, Eosinophils # (Auto) 0.2, Basophils # (Auto) 0.0 10/01/16 23:45 Red Blood Count 2.38 L, Mean Corpuscular Volume 86.5, Mean Corpuscular Hemoglobin 29.6, Mean Corpuscular Hemoglobin Concent 34.2, Red Cell Distribution Width 15.2 H, Neutrophils (%) (Auto) 68.1 H, Lymphocytes (%) (Auto ) 23.1 L, Monocytes (%) (Auto) 5.0, Eosinophils (%) (Auto) 2.4, Basophils (%) ( Auto) 0.3, Neutrophils # (Auto) 9.6 H, Lymphocytes # (Auto) 3.4, Monocytes # ( Auto) 0.7, Eosinophils # (Auto) 0.3, Basophils # (Auto) 0.0 10/02/16 05:52 Calcium Level 7.0 L, Aspartate Amino Transf (AST/SGOT) 24, Alanine Aminotransferase (ALT/SGPT) 13, Alkaline Phosphatase 99, Total Bilirubin 0.5, Total Protein 4.4 L, Albumin 1.8 L, Lactate Dehydrogenase 223, Uric Acid 5.5 10/02/16 05:55 Red Blood Count 2.53 L, Mean Corpuscular Volume 87.3, Mean Corpuscular Hemoglobin 29.9, Mean Corpuscular Hemoglobin Concent 34.2, Red Cell Distribution Width 15.3 H, Neutrophils (%) (Auto) 71.6 H, Lymphocytes (%) (Auto ) 21.3 L, Monocytes (%) (Auto) 3.8, Eosinophils (%) (Auto) 2.0, Basophils (%) ( Auto) 0.4, Neutrophils # (Auto) 10.1 H, Lymphocytes # (Auto) 3.1, Monocytes # ( Auto) 0.5, Eosinophils # (Auto) 0.3, Basophils # (Auto) 0.0 10/02/16 12:13 Red Blood Count 2.51 L, Mean Corpuscular Volume 87.7, Mean Corpuscular Hemoglobin 30.7, Mean Corpuscular Hemoglobin Concent 35.1, Red Cell Distribution Width 15.5 H, Neutrophils (%) (Auto) 75.1 H, Lymphocytes (%) (Auto ) 18.6 L, Monocytes (%) (Auto) 3.9, Eosinophils (%) (Auto) 1.5, Basophils (%) ( Auto) 0.2, Neutrophils # (Auto) 11.0 H, Lymphocytes # (Auto) 2.8, Monocytes # ( Auto) 0.6, Eosinophils # (Auto) 0.2, Basophils # (Auto) 0.0 Vital Signs Date Time Temp Pulse Resp B/P (MAP) Pulse Ox O2 Delivery O2 Flow Rate FiO2 10/02/16 12:00 98.2 92 16 152/92 (112) 95 Room Air 5/15/17 07:21 2.0 I&O- Last 24 Hours up to 6 AM 10/02/16 05:59 Intake Total 2840 ml Output Total 3395 ml Balance -555 ml VIANEY SLATER MD October 02, 2016 17:12
[2016-10-02 18:32] LABS: BASO % 0.2 % (0.0-1.0); EOS # 0.2 K/mm3 (0.0-0.50); EOS % 1.5 % (0.0-3.0); LARGE UNSTAINED CELL # 0.2 K/mm3 (0.0-0.4); LARGE UNSTAINED CELL % 1.4 % (0.0-4.0); LYMPH # 3.6 K/mm3 (1.5-6.5); LYMPH % 24.2 % (24.0-44.0); MEAN CORPUSCULAR HEMOGLOBIN 29.9 pg (27.0-33.0); MEAN CORPUSCULAR HGB CONC 33.4 g/dl (32.0-36.5); MEAN CORPUSCULAR VOLUME 89.5 fl (80.0-96.0); MONO # 0.5 K/mm3 (0.0-0.8); MONO % 3.6 % (0.0-5.0); NEUTROPHILS # 10.2 K/mm3 (1.8-7.7); NEUTROPHILS % 69.1 % (36.0-66.0); PLATELET COUNT, AUTOMATED 206 k/mm3 (150-450); RED CELL DISTRIBUTION WIDTH 15.3 % (11.5-14.5); WHITE BLOOD COUNT 14.7 K/mm3 (4.0-10.0)
[2016-10-02 18:53] LABS: ALBUMIN 1.9 GM/DL (3.2-5.2); ALBUMIN/GLOBULIN RATIO 0.66 (1.00-1.93); ALKALINE PHOSPHATASE 108 U/L (45-117); ALT/SGPT 17 U/L (12-78); ANION GAP 8 MEQ/L (8-16); AST/SGOT 25 U/L (15-37); BILIRUBIN,TOTAL 0.4 MG/DL (0.2-1.0); BLOOD UREA NITROGEN 9 MG/DL (7-18); CALCIUM LEVEL 7.4 MG/DL (8.5-10.1); CARBON DIOXIDE LEVEL 26 MEQ/L (21-32); CHLORIDE LEVEL 109 MEQ/L (98-107); CREATININE FOR GFR 0.63 MG/DL (0.55-1.02); GLOMERULAR FILTRATION RATE > 60.0 (>60); GLUCOSE, FASTING 68 MG/DL (70-105); POTASSIUM SERUM 3.9 MEQ/L (3.5-5.1); SODIUM LEVEL 143 MEQ/L (136-145); TOTAL PROTEIN 4.8 GM/DL (6.4-8.2)
--- NOTE | 2016-10-02 22:40 | REPUSA ---
Clinical history: Shortness of breath. Comparison: None. Findings: The right-sided PICC line catheter is within the superior vena cava. The mediastinum and ca rdiac silhouette are within normal limits. There is mild pulmonary vascular congestion. There is a sm all left-sided pleural effusion. No pneumothorax is seen. The osseous structures and soft tissues are unremarkable. Impression: Mild congestive heart failure. Small left-sided pleural effusion.
[2016-10-03] VITALS (8 sets, daily range): BP systolic 142–179; BP diastolic 88–102
[2016-10-03] MEDS: IBUPROFEN 800 MG TAB PO SCH ×2 (06:24→21:53)
[2016-10-03] MEDS: AMPICILLIN SOD/SULBACTAM SOD 3 GM in D5W MINI-BAG PLUS 100 ML IV SCH (06:25)
[2016-10-03] MEDS: SODIUM CHLORIDE 0.9% INJ 10 ML SYR IV SCH ×2 (06:26→18:25)
[2016-10-03 06:59] LABS: BASO % 0.3 % (0.0-1.0); EOS # 0.2 K/mm3 (0.0-0.50); EOS % 1.6 % (0.0-3.0); LARGE UNSTAINED CELL # 0.1 K/mm3 (0.0-0.4); LYMPH # 2.3 K/mm3 (1.5-6.5); LYMPH % 19.3 % (24.0-44.0); MEAN CORPUSCULAR HEMOGLOBIN 29.6 pg (27.0-33.0); MEAN CORPUSCULAR HGB CONC 33.7 g/dl (32.0-36.5); MEAN CORPUSCULAR VOLUME 87.9 fl (80.0-96.0); MONO # 0.4 K/mm3 (0.0-0.8); MONO % 3.6 % (0.0-5.0); NEUTROPHILS # 8.6 K/mm3 (1.8-7.7); NEUTROPHILS % 74.2 % (36.0-66.0); PLATELET COUNT, AUTOMATED 242 k/mm3 (150-450); RED CELL DISTRIBUTION WIDTH 15.7 % (11.5-14.5); WHITE BLOOD COUNT 11.6 K/mm3 (4.0-10.0)
[2016-10-03] MEDS: PRENATAL VITAMIN TAB PO SCH (09:00)
[2016-10-03] MEDS: DOCUSATE SODIUM 100 MG CAP PO SCH ×2 (09:00→21:00)
[2016-10-03] MEDS: ENOXAPARIN 40 MG/0.4 ML SYRINGE (J1650) SC SCH (10:04)
--- NOTE | 2016-10-03 10:15 | MHIPNPDOC ---
[facility] Progress Note Progress Note DATE OF SERVICE: 10/03/16 HISTORY: Evaluated 30 year old female with history of a traumatic experience due to several complications with her delivery ( labor had to be induced, then she went through a , then she had an emergent hysterectomy). She hasn' t been able to sleep, is shaky, extremely anxious and states that she is sad because she never expected to have her uterus removed and she was hoping to become again and have another baby. She is happy about her baby , she is thankful to be alive but she has memories ( very limited) of being close to and bleeding a lot. She states her childhood was a happy childhood, (relatively), because her mother was working too much and had a drinking problem. She says her parents got a couple of years ago, and she was mad at mom because she was the one who asked for the divorce after her father had to put up with her mother's drinking problem for years. She has a sister, younger than her, her only sibling, who is going to be moving to [facility] [place] soon and she says she is very close to her and is going to miss her a lot. 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 She was seen at her room, she was cooperative, pleasant, had good eye contact and good rapport. Her speech is normal; her mood is as she states " I'm very anxious, I haven't slept and I feel sad". Her affect ais sad/anxious. Her thought process is intact, her thought content is negative for suicidal ideation , negative for homicidal ideation, negative for psychotic thoughts but she admits to racing thoughts and restlessness. her judgement, insight and impulse control are good. patient is not dangerous to self or others at this time, but she is certainly going through a very difficult time in her life because she had to endure very traumatic experiences and she is grieving the possibility of not being able to have another child and loosing her uterus, which is usually associated with womanhood. I believe she is suffering of: ACUTE STRESS DISORDER NORMAL BEREAVEMENT She hasn't been depressed for two weeks and she doesn't express suicidal ideation, so, she doesn't require SSRI's at this time, but she would benefit by receiving INDERALL 10 mgs. PO TID and this would take care of the physical symptoms of anxiety (shakiness, fast heart rate, sweating), but she needs to sleep, so she would also benefit from Ativan 1 mg PO QHS PRN for sleep. Patient is awatre she won't be able to breast feed while she's on these medications and both and has agreed to treatment. Her has also agreed to it and she was told that if she felt better after a couple of days, these medications could be tapered so that she can breast feed the baby. She will be followed up. Vital Signs Vital Signs Date Time Temp Pulse Resp B/P (MAP) Pulse Ox O2 Delivery O2 Flow Rate FiO2 10/03/16 08:58 98.0 90 20 142/88 (106) 97 10/03/16 01:59 Room Air 09/30/16 07:21 2.0 Laboratory Data 24H Labs Laboratory Tests 2 10/02/16 12:13: White Blood Count 14.6H, Red Blood Count 2.51L, Hemoglobin 7.7L, Hematocrit 22.0L, Mean Corpuscular Volume 87.7, Mean Corpuscular Hemoglobin 30.7, Mean Corpuscular Hemoglobin Concent 35.1, Red Cell Distribution Width 15.5H, Platelet Count 194, Neutrophils (%) (Auto) 75.1H, Lymphocytes (%) (Auto) 18.6L, Monocytes (%) (Auto) 3.9, Eosinophils (%) (Auto) 1.5, Basophils (%) (Auto) 0.2, Neutrophils # (Auto) 11.0H, Lymphocytes # (Auto) 2.8, Monocytes # (Auto) 0.6, Eosinophils # (Auto) 0.2, Basophils # (Auto) 0.0, Large Unclassified Cells % 0.8 , Large Unclassified Cells # 0.1, Prothrombin Time 12.8, Prothromb Time International Ratio 0.95, Activated Partial Thromboplast Time 31.0, Fibrinogen 568H 10/02/16 18:08: White Blood Count 14.7H, Red Blood Count 2.55L, Hemoglobin 7.6L, Hematocrit 22.8L, Mean Corpuscular Volume 89.5, Mean Corpuscular Hemoglobin 29.9, Mean Corpuscular Hemoglobin Concent 33.4, Red Cell Distribution Width 15.3H, Platelet Count 206, Neutrophils (%) (Auto) 69.1H, Lymphocytes (%) (Auto) 24.2, Monocytes (%) (Auto) 3.6, Eosinophils (%) (Auto) 1.5, Basophils (%) (Auto) 0.2, Neutrophils # (Auto) 10.2H, Lymphocytes # (Auto) 3.6, Monocytes # (Auto) 0.5, Eosinophils # (Auto) 0.2, Basophils # (Auto) 0.0, Large Unclassified Cells % 1.4 , Large Unclassified Cells # 0.2, Anion Gap 8, Glomerular Filtration Rate > 60.0 , Blood Urea Nitrogen 9, Creatinine 0.63, Sodium Level 143, Potassium Level 3.9 , Chloride Level 109H, Carbon Dioxide Level 26, Calcium Level 7.4L, Aspartate Amino Transf (AST/SGOT) 25, Alanine Aminotransferase (ALT/SGPT) 17, Alkaline Phosphatase 108, Total Bilirubin 0.4, Total Protein 4.8L, Albumin 1.9L, Albumin/ Globulin Ratio 0.66L 10/03/16 06:28: White Blood Count 11.6H, Red Blood Count 2.64L, Hemoglobin 7.8L, Hematocrit 23.2L, Mean Corpuscular Volume 87.9, Mean Corpuscular Hemoglobin 29.6, Mean Corpuscular Hemoglobin Concent 33.7, Red Cell Distribution Width 15.7H, Platelet Count 242, Neutrophils (%) (Auto) 74.2H, Lymphocytes (%) (Auto) 19.3L, Monocytes (%) (Auto) 3.6, Eosinophils (%) (Auto) 1.6, Basophils (%) (Auto) 0.3, Neutrophils # (Auto) 8.6H, Lymphocytes # (Auto) 2.3, Monocytes # (Auto) 0.4, Eosinophils # (Auto) 0.2, Basophils # (Auto) 0.0, Large Unclassified Cells % 1.0 , Large Unclassified Cells # 0.1 CBC/BMP Laboratory Tests 10/02/16 12:13 Red Blood Count 2.51 L, Mean Corpuscular Volume 87.7, Mean Corpuscular Hemoglobin 30.7, Mean Corpuscular Hemoglobin Concent 35.1, Red Cell Distribution Width 15.5 H, Neutrophils (%) (Auto) 75.1 H, Lymphocytes (%) (Auto ) 18.6 L, Monocytes (%) (Auto) 3.9, Eosinophils (%) (Auto) 1.5, Basophils (%) ( Auto) 0.2, Neutrophils # (Auto) 11.0 H, Lymphocytes # (Auto) 2.8, Monocytes # ( Auto) 0.6, Eosinophils # (Auto) 0.2, Basophils # (Auto) 0.0 10/02/16 18:08 Red Blood Count 2.55 L, Mean Corpuscular Volume 89.5, Mean Corpuscular Hemoglobin 29.9, Mean Corpuscular Hemoglobin Concent 33.4, Red Cell Distribution Width 15.3 H, Neutrophils (%) (Auto) 69.1 H, Lymphocytes (%) (Auto ) 24.2, Monocytes (%) (Auto) 3.6, Eosinophils (%) (Auto) 1.5, Basophils (%) ( Auto) 0.2, Neutrophils # (Auto) 10.2 H, Lymphocytes # (Auto) 3.6, Monocytes # ( Auto) 0.5, Eosinophils # (Auto) 0.2, Basophils # (Auto) 0.0, Calcium Level 7.4 L , Aspartate Amino Transf (AST/SGOT) 25, Alanine Aminotransferase (ALT/SGPT) 17, Alkaline Phosphatase 108, Total Bilirubin 0.4, Total Protein 4.8 L, Albumin 1.9 L 10/03/16 06:28 Red Blood Count 2.64 L, Mean Corpuscular Volume 87.9, Mean Corpuscular Hemoglobin 29.6, Mean Corpuscular Hemoglobin Concent 33.7, Red Cell Distribution Width 15.7 H, Neutrophils (%) (Auto) 74.2 H, Lymphocytes (%) (Auto ) 19.3 L, Monocytes (%) (Auto) 3.6, Eosinophils (%) (Auto) 1.6, Basophils (%) ( Auto) 0.3, Neutrophils # (Auto) 8.6 H, Lymphocytes # (Auto) 2.3, Monocytes # ( Auto) 0.4, Eosinophils # (Auto) 0.2, Basophils # (Auto) 0.0 Current Medications Current Medications Ampicillin Sodium/ Sulbactam Sodium 3 gm/Dextrose 100 ml @ 200 mls/hr Q6H IV Last administered on 09/29/16 15:04; Start 09/29/16 at 15:00; Stop 09/29/16 at 21:52; Status DC Ampicillin Sodium/ Sulbactam Sodium 3 gm/Dextrose 100 ml @ 200 mls/hr Q6H IV Last administered on 10/02/16 04:47; Start 09/30/16 at 10:00; Stop 10/02/16 at 08:11; Status DC Ampicillin Sodium/ Sulbactam Sodium 3 gm/Dextrose 100 ml @ 200 mls/hr Q6H IV Last administered on 10/03/16 06:25; Start 10/02/16 at 11:00; Stop 10/03/16 at 06:33; Status DC Diphenhydramine HCl (Benadryl) 12.5 mg Q4HP PRN IV ITCHING; Start 09/29/16 at 05:15; Stop 09/29/16 at 21:52; Status DC Diphenhydramine HCl (Benadryl) 12.5 mg Q4HP PRN IV PRURITIS ASSOC WITH NARCOTICS; Start 09/30/16 at 05:45; Stop 09/30/16 at 06:22; Status DC Docusate Sodium (Colace) 100 mg BID PO ; Start 09/30/16 at 09:00; Stop 09/30/16 at 09:00; Status DC Docusate Sodium (Colace) 100 mg BID PO Last administered on 10/02/16 22:51; Start 09/30/16 at 09:00; Stop 10/30/16 at 08:59 Enoxaparin Sodium (Lovenox) 40 mg DAILY SC Last administered on 10/02/16 08:55 ; Start 10/01/16 at 09:00; Stop 10/06/16 at 08:59 Enoxaparin Sodium (Lovenox) 40 mg DAILY@1200 SC ; Start 09/30/16 at 12:00; Stop 09/30/16 at 12:00; Status DC Ephedrine Sulfate (EPHEDrine SULFATE (5MG/ML)) 5 mg Q3MP PRN IV HYPOTENSION; Start 09/29/16 at 05:15; Stop 09/29/16 at 21:52; Status DC Fentanyl Citrate (Sublimaze) 25 mcg Q5MP PRN IV MODERATE PAIN (PS 4-7); Start 09/29/16 at 22:00; Stop 09/29/16 at 22:00; Status DC Fentanyl Citrate (Sublimaze) 25 mcg Q5MP PRN IV MODERATE PAIN (PS 4-7); Start 09/30/16 at 05:45; Stop 09/30/16 at 06:22; Status DC Heparin Sodium (Heparin (Flush)) 200 units ASDIRECTED PRN IV SEE LABEL COMMENTS Last administered on 10/02/16 12:17; Start 10/01/16 at 17:15; Stop at 17:14 Heparin Sodium (Heparin (Flush)) 200 units PICC IV Last administered on 06:26; Start 10/01/16 at 18:00; Stop 10/31/16 at 17:59 Home Med (Med Rec Complete!) ASDIRECTED XX ; Start 09/28/16 at 13:30; Stop at 13:30; Status DC Hydromorphone HCl (Dilaudid) 0.2 mg Q5MP PRN IV MODERATE/SEVERE PAIN (PS 7-10) ; Start 09/29/16 at 22:00; Stop 09/29/16 at 22:00; Status DC Hydromorphone HCl (Dilaudid) 0.2 mg Q5MP PRN IV MODERATE/SEVERE PAIN (PS 7-10) ; Start 09/30/16 at 05:45; Stop 09/30/16 at 06:22; Status DC Ibuprofen (Advil) 800 mg Q8H PO Last administered on 10/03/16 06:24; Start at 14:00; Stop 10/30/16 at 13:59 Ibuprofen (Advil) 800 mg Q8H PO ; Start 10/01/16 at 05:00; Stop 10/01/16 at 05: 00; Status DC Ibuprofen (Advil) 800 mg Q8H PO ; Start 10/01/16 at 08:00; Stop 10/01/16 at 08: 00; Status DC Ketorolac Tromethamine (ToRADol) 30 mg Q6H IV ; Start 09/30/16 at 03:00; Stop at 05:32; Status DC Lactated Ringer's 1,000 ml @ 15 mls/hr Q24H IV Last administered on 09/30/16t 06:35; Start 09/30/16 at 05:58; Stop 10/01/16 at 17:26; Status DC Lactated Ringer's 1,000 ml @ 70 mls/hr [id number] IV ; Start 09/30/16 at 05:45; Stop 09/30/16 at 06:22; Status DC Lactated Ringer's 1,000 ml @ 100 mls/hr Q10H IV ; Start 09/29/16 at 22:00; Stop 09/29/16 at 22:00; Status DC Lactated Ringer's 1,000 ml @ 125 mls/hr Q8H IV Last administered on 09/28/16t 15:00; Start 09/28/16 at 13:46; Stop 09/29/16 at 21:52; Status DC Lactated Ringer's 1,000 ml @ 125 mls/hr Q8H IV ; Start 09/29/16 at 21:51; Stop 09/29/16 at 22:00; Status DC Lactated Ringer's 1,000 ml @ 125 mls/hr Q8H IV ; Start 09/29/16 at 21:51; Stop 09/30/16 at 05:32; Status DC Lactated Ringer's (Lactated Ringer'S) 500 ml BOLUS PRN IV SEE LABEL COMMENTS; Start 09/29/16 at 05:15; Stop 09/29/16 at 21:52; Status DC Measles/Mumps/ Rubella Vaccine Live (M-M-R Ii w/ Diluent) 0.5 ml ASDIRECTED SC ; Start 09/29/16 at 22:00; Stop 09/29/16 at 22:01; Status DC Measles/Mumps/ Rubella Vaccine Live (M-M-R Ii w/ Diluent) 0.5 ml ASDIRECTED SC ; Start 09/29/16 at 22:00; Stop 09/30/16 at 05:32; Status DC Measles/Mumps/ Rubella Vaccine Live (M-M-R Ii w/ Diluent) 0.5 ml ASDIRECTED SC ; Start 09/30/16 at 06:00; Stop 10/30/16 at 05:59 Meperidine HCl (Demerol) 12.5 mg Q5MP PRN IV SHIVERING; Start 09/29/16 at 22:00 ; Stop 09/29/16 at 22:00; Status DC Meperidine HCl (Demerol) 12.5 mg Q5MP PRN IV SHIVERING; Start 09/30/16 at 05:45 ; Stop 09/30/16 at 06:22; Status DC Metoclopramide HCl (REGLAN INJection) 10 mg Q6HP PRN IV NAUSEA OR VOMITING; Start 09/29/16 at 22:00; Stop 09/30/16 at 05:32; Status DC Metoclopramide HCl (REGLAN INJection) 10 mg Q6HP PRN IV NAUSEA OR VOMITING; Start 09/30/16 at 02:00; Stop 09/30/16 at 02:59; Status DC Metoclopramide HCl (REGLAN INJection) 10 mg Q6HP PRN IV NAUSEA OR VOMITING Last administered on 10/03/16t 07:23; Start 09/30/16 at 06:00; Stop 10/30/16 at 05:59 Nalbuphine HCl (Nubain) 2.5 mg ASDIRECTED PRN IV PRURITIS; Start 09/29/16 at 22 :00; Stop 09/29/16 at 22:00; Status DC Naloxone HCl (Narcan) 0.1 mg Q5MP PRN IV SEE LABEL COMMENTS; Start 09/29/16 at 05:15; Stop 09/29/16 at 21:52; Status DC Non-Formulary Medication (* Pending Penicillin Entry *) BID XX ; Start at 21:00; Stop 09/28/16 at 22:06; Status DC Non-Formulary Medication ( See Comment Field Below ) ASDIRECTED XX ; Start 09/29/16 at 05:15; Stop 09/29/16 at 21:52; Status DC Non-Formulary Medication (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 ASDIRECTED PRN XX SEE LABEL COMMENTS; Start 09/29/16 at 05:15; Stop 09/29/16 at 21:52; Status DC Non-Formulary Medication (Refrigerator Castrejon) ASDIRECTED PRN XX SEE LABEL COMMENTS; Start 09/29/16 at 05:15; Stop 09/29/16 at 21:52; Status DC Ondansetron HCl (ZOFRAN INJection) 4 mg Q4HP PRN IV NAUSEA OR VOMITING; Start 09/29/16 at 22:00; Stop 09/29/16 at 22:00; Status DC Ondansetron HCl (ZOFRAN INJection) 4 mg Q6HP PRN IV NAUSEA; Start 09/29/16 at 05:15; Stop 09/29/16 at 21:52; Status DC Oxycodone/ Acetaminophen (Percocet 5mg/ 325mg Tablet) 1 tab ASDIRECTED PRN PO MODERATE PAIN (PS 4-7); Start 09/29/16 at 22:00; Stop 09/29/16 at 22:59; Status Cancel Oxycodone/ Acetaminophen (Percocet 5mg/ 325mg Tablet) 1 tab Q4HP PRN PO MILD PAIN (PS 1-4); Start 09/29/16 at 22:00; Stop 09/30/16 at 05:32; Status DC Oxycodone/ Acetaminophen (Percocet 5mg/ 325mg Tablet) 1 tab Q4HP PRN PO MILD PAIN (PS 1-4) Last administered on 10/02/16 10:35; Start 09/30/16 at 06:00; Stop 10/07/16 at 05:59 Oxycodone/ Acetaminophen (Percocet 5mg/ 325mg Tablet) 2 tab Q4HP PRN PO MODERATE/SEVERE PAIN (PS 5-10); Start 09/29/16 at 22:00; Stop 09/30/16 at 05:32 ; Status DC Oxycodone/ Acetaminophen (Percocet 5mg/ 325mg Tablet) 2 tab Q4HP PRN PO MODERATE/SEVERE PAIN (PS 5-10); Start 09/30/16 at 06:00; Stop 10/07/16 at 05:59 Oxytocin 30 units/ IV Miscellaneous Supplies 500 ml @ 999 mls/hr Q31M IV ; Start 09/29/16 at 23:06; Stop 09/29/16 at 23:36; Status DC Oxytocin 30 units/ IV Miscellaneous Supplies 500 ml @ 0 mls/hr DRIP IV Last administered on 09/28/16 15:00; Start 09/28/16 at 14:00; Stop 09/29/16 at 07:58 ; Status DC Oxytocin 30 units/ IV Miscellaneous Supplies 500 ml @ 0 mls/hr DRIP IV ; Start 09/29/16 at 08:00; Stop 09/29/16 at 14:57; Status DC Oxytocin 30 units/ IV Miscellaneous Supplies 500 ml @ 0 mls/hr DRIP IV ; Start 09/29/16 at 15:00; Stop 09/29/16 at 21:52; Status DC Penicillin G Potassium 2.5 mu/ Dextrose 105 ml @ 105 mls/hr Q4H IV Last administered on 09/29/16 10:58; Start 09/29/16 at 02:00; Stop 09/29/16 at 14:27 ; Status DC Penicillin G Potassium 5 mu/ Dextrose 110 ml @ 110 mls/hr STAT STAT IV Last administered on 09/28/16 22:36; Start 09/28/16 at 22:06; Stop 09/29/16 at 14:27 ; Status DC Phenylephrine HCl (NEOSYNEPHRINE INJection) 10 mg ASDIRECTED IV ; Start at 04:00; Stop 10/30/16 at 03:59; Status UNV Phenylephrine HCl 50 mg/Dextrose 505 ml @ 6.06 mls/hr Q24H IV Last administered on 09/30/16 03:01; Start 09/30/16 at 04:15; Stop 09/30/16 at 05:32 ; Status DC Prenat Multivit/ Banner/Iron/Folic Ac ( Rx) 1 tab DAILY PO ; Start at 09:00; Stop 09/30/16 at 09:00; Status DC Prenat Multivit/ Banner/Iron/Folic Ac ( Rx) 1 tab DAILY PO ; Start at 09:00; Stop 09/30/16 at 09:00; Status DC Prenat Multivit/ Banner/Iron/Folic Ac ( Rx) 1 tab DAILY PO Last administered on 10/02/16 08:55; Start 09/30/16 at 09:00; Stop 10/30/16 at 08:59 Ranitidine HCl (Zantac) 150 mg BID PO Last administered on 09/28/16 23:16; Start 09/28/16 at 21:00; Stop 09/29/16 at 21:52; Status DC Rho Immune Globulin (Rhogam Injection) 300 mcg ASDIRECTED IM ; Start 09/29/16 at 22:00; Stop 09/29/16 at 22:01; Status DC Rho Immune Globulin (Rhogam Injection) 300 mcg ASDIRECTED IM ; Start 09/29/16 at 22:00; Stop 09/30/16 at 05:32; Status DC Rho Immune Globulin (Rhogam Injection) 300 mcg ASDIRECTED IM ; Start 09/30/16 at 06:00; Stop 10/30/16 at 05:59 Sodium Chloride (Saline Lock Flush) 10 ML PICC IV Last administered on 06:26; Start 10/01/16 at 18:00; Stop 10/31/16 at 17:59 Sodium Chloride (Saline Lock Flush) 10ML ASDIRECTED PRN IV SEE LABEL COMMENTS Last administered on 10/02/16t 12:16; Start 10/01/16 at 17:15; Stop 10/31/16 at 17:14 Allergies Coded Allergies: Codeine (Verified Adverse Reaction, Unknown, 09/28/16) GI upset Sulfa Antibiotics (Verified Adverse Reaction, Unknown, 09/28/16) JULIO BERMAN MD October 03, 2016 10:15
[2016-10-03] MEDS ORDERED: diphenhydrAMINE 50 MG CAP PO ONE (11:45)
[2016-10-03] MEDS ORDERED: diphenhydrAMINE 25 MG CAP PO ONE (13:45)
[2016-10-03] MEDS: PROPRANOLOL 10 MG TAB PO SCH (16:36)
[2016-10-03] MEDS: SODIUM CHLORIDE 0.9% INJ 10 ML SYR IV PRN (18:25)
[2016-10-03] MEDS ORDERED: PROPRANOLOL 10 MG TAB PO ONE (19:45)
[2016-10-03] MEDS ORDERED: LABETALOL 100 MG TAB PO ONE (20:30)
[2016-10-03] MEDS ORDERED: hydrALAZINE INJ 20 MG/ML VIAL IV ONE (20:45)
[2016-10-03] MEDS: LABETALOL 200 MG TAB PO SCH (21:53)
[2016-10-03] MEDS ORDERED: LORazepam 1 MG TAB PO PRN (23:15)
[2016-10-04] VITALS (12 sets, daily range): BP systolic 128–177; BP diastolic 81–100
[2016-10-04] MEDS: IBUPROFEN 800 MG TAB PO SCH ×3 (06:01→21:26)
[2016-10-04 06:45] LABS: MEAN CORPUSCULAR HEMOGLOBIN 30.2 pg (27.0-33.0); MEAN CORPUSCULAR HGB CONC 33.9 g/dl (32.0-36.5); MEAN CORPUSCULAR VOLUME 89.1 fl (80.0-96.0); RED CELL DISTRIBUTION WIDTH 15.9 % (11.5-14.5); WHITE BLOOD COUNT 11.4 K/mm3 (4.0-10.0)
[2016-10-04 08:00] LABS: ALBUMIN 1.9 GM/DL (3.2-5.2); ALBUMIN/GLOBULIN RATIO 0.54 (1.00-1.93); ALKALINE PHOSPHATASE 102 U/L (45-117); ALT/SGPT 16 U/L (12-78); ANION GAP 7 MEQ/L (8-16); AST/SGOT 19 U/L (15-37); BILIRUBIN,TOTAL 0.5 MG/DL (0.2-1.0); BLOOD UREA NITROGEN 8 MG/DL (7-18); CALCIUM LEVEL 7.4 MG/DL (8.5-10.1); CARBON DIOXIDE LEVEL 24 MEQ/L (21-32); CHLORIDE LEVEL 112 MEQ/L (98-107); CREATININE FOR GFR 0.62 MG/DL (0.55-1.02); GLOMERULAR FILTRATION RATE > 60.0 (>60); GLUCOSE, FASTING 69 MG/DL (70-105); POTASSIUM SERUM 3.8 MEQ/L (3.5-5.1); SODIUM LEVEL 143 MEQ/L (136-145); TOTAL PROTEIN 5.4 GM/DL (6.4-8.2)
[2016-10-04] MEDS: PRENATAL VITAMIN TAB PO SCH (08:58)
[2016-10-04] MEDS: LABETALOL 200 MG TAB PO SCH ×2 (08:58→16:40)
[2016-10-04] MEDS: DOCUSATE SODIUM 100 MG CAP PO SCH ×2 (09:00→21:00)
[2016-10-04] MEDS: PROPRANOLOL 10 MG TAB PO SCH (09:31)
[2016-10-04] MEDS: ENOXAPARIN 40 MG/0.4 ML SYRINGE (J1650) SC SCH (09:47)
[2016-10-04] MEDS ORDERED: LORazepam 0.5 MG TAB PO PRN (10:00)
--- NOTE | 2016-10-04 10:06 | IPNPDOC ---
Text Note Date of Service The patient was seen on 10/04/16. NOTE Note 30yo s/p PLTCS for arrest of dilation on 09/29/16 and hysterectomy 09/30/16. S/p 9 units PRBC, 5 units FFP, 1 unit PLT. 24hr events: SOB resolved, was transfered to L&D where could have O2 sats monitored. Reports improving anxiety after talking to psychiatry yesterday. Does not feel that the Inderall really helped at all, felt much better however with the Ativan. Does not want this scheduled, was given ~2300 last night and today/currently is feeling well, no complaints. Pain controlled, using minimal to no pain meds. No VB/LP/CP/SOB. Was given 5 mg Hydralazine yesterday for persistent severe range BP's which have now been mostly in the elevated mild range. afebrile, normal HR. On Labetalol 200 BID for these. Labs: this AM has stable CBC and normal Pre-E profile, Ur Pr/Cr is 0.38 (not worsening) VS noted, AF NAD A&O, much less facial and UE edema Abd appropr tenderness, incision CDI, healing well, plan for staple removal tomorrow LE with 2+ edema, no cyanosis A/P: Doing well, afebrile, Edema continues to improve. No evid florid PP Pre-E , no Mag sulfate indicated. 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 Unasyn has been off now 24 hours. Encourage ambulation. Liekly d/c tomorrow AM. Will continue to monitor. Sessions Isa NIX, I+O Isa LANDRY I+O Laboratory Tests 10/04/16 06:20 Red Blood Count 2.53 L, Mean Corpuscular Volume 89.1, Mean Corpuscular Hemoglobin 30.2, Mean Corpuscular Hemoglobin Concent 33.9, Red Cell Distribution Width 15.9 H 10/04/16 07:06 Calcium Level 7.4 L, Aspartate Amino Transf (AST/SGOT) 19, Alanine Aminotransferase (ALT/SGPT) 16, Alkaline Phosphatase 102, Total Bilirubin 0.5, Total Protein 5.4 L, Albumin 1.9 L Vital Signs Date Time Temp Pulse Resp B/P (MAP) Pulse Ox O2 Delivery O2 Flow Rate FiO2 10/04/16 07:24 98.6 71 16 167/93 (117) 10/03/16 08:58 97 10/03/16 01:59 Room Air 09/30/16 07:21 2.0 I&O- Last 24 Hours up to 6 AM 10/04/16 06:00 Intake Total 294 ml Output Total 1950 ml Balance -1656 ml SESSIONS,VIANEY Marie MD October 04, 2016 10:06
[2016-10-04] MEDS ORDERED: FUROSEMIDE 20 MG/2 ML VIAL (J1940) IV ONE (17:00)
[2016-10-05 01:10] VITALS: BP 143/86
[2016-10-05 01:12] VITALS: BP 143/86
[2016-10-05] MEDS: LABETALOL 200 MG TAB PO SCH ×2 (01:12→08:56)
[2016-10-05 06:00] VITALS: BP 136/80
[2016-10-05] MEDS: IBUPROFEN 800 MG TAB PO SCH (06:01)
[2016-10-05 08:28] VITALS: BP 157/96
[2016-10-05] MEDS: ENOXAPARIN 40 MG/0.4 ML SYRINGE (J1650) SC SCH (08:55)
[2016-10-05] MEDS: PRENATAL VITAMIN TAB PO SCH (08:55)
[2016-10-05] MEDS: DOCUSATE SODIUM 100 MG CAP PO SCH (08:56)
--- NOTE | 2016-10-05 09:19 | IPNPDOC ---
Text Note Date of Service The patient was seen on 10/05/16. NOTE Note 30yo s/p PLTCS for arrest of dilation on 09/29/16 and hysterectomy 09/30/16. S/p 9 units PRBC, 5 units FFP, 1 unit PLT. 24hr events: Reports improving anxiety Pain controlled, using minimal to no pain meds. No VB/LP/CP/SOB. On Labetalol 200 TID. VS noted (mild range BP's, nothing severe range), AF NAD A&O, much less facial and UE edema Abd appropr tenderness, incision CDI, healing well, john removed, steri's placed LE with improving edema, no cyanosis A/P: Doing well, afebrile, Edema continues to improve. No evid florid PP Pre- E. 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 Unasyn has been off now 48 hours. D/C home. Sessions MD LANDRY,Isa, I+O VSIsa I+O Vital Signs Date Time Temp Pulse Resp B/P (MAP) Pulse Ox O2 Delivery O2 Flow Rate FiO2 10/05/16 08:28 98.1 76 18 157/96 (116) 10/05/16 06:12 96 Room Air 09/30/16 07:21 2.0 I&O- Last 24 Hours up to 6 AM 10/05/16 06:00 Intake Total 2160 ml Output Total 2300 ml Balance -140 ml SESSIONS,VIANEY Marie MD October 05, 2016 09:19
[2016-10-05] MEDS ORDERED: ATIV1TAB10 PO (09:25)
[2016-10-05] MEDS ORDERED: ADVI200C5 PO (09:25)
[2016-10-05] MEDS ORDERED: OXYC1TAB23 PO (09:25)
[2016-10-05] MEDS ORDERED: LABE10TAB PO (09:25)
[2016-10-05] MEDS ORDERED: COLA100C3 PO (09:25)
[2016-10-05] MEDS ORDERED: LOVE1INJ SC (09:25)
--- NOTE | 2016-10-06 11:42 | DSES ---
DATE OF ADMISSION: 09/28/2016 DATE OF DISCHARGE: 10/05/2016 DISCHARGE DIAGNOSES: 1. Preeclampsia at term. 2. Status post section for arrest of descent, also had chorioamnionitis. 3. hemorrhage. 4. Status post hysterectomy due to uncontrollable hemorrhage. 5. Factor V Leiden heterozygote. HISTORY: The patient was admitted on 09/28/2016 at 39 weeks and 1 day for gestational hypertension; however, upon admission, laboratories review, her diagnosis was upgraded to preeclampsia without severe features. She underwent an uncomplicated induction with epidural and Pitocin and Group B streptococcus (GBS ) prophylaxis until she reached complete dilation and effacement; at which point she proceeded to push for 3 hours. She was also diagnosed with chorioamnionitis during her labor. She was never able to bring the baby down past 0 to +1 station, therefore an indicated was performed. Her was uncomplicated other than the findings of a very thin, quarter sized area at the midline fundus that was significantly thinner and seemed not to have any muscular tissue surrounding it, which responded normally to Pitocin and was quickly not visible or palpable as the uterus firmed up. The infant was healthy and transferred to the intensive care unit (NICU) for IV blood draws, monitoring and antibiotics. In the obstetrical unit postanesthesia care unit, Mrs. Christian had a significant amount of bleeding, was noted to have dropped her pressures slightly, but stabilized with the use of Cytotec, Hemabate, and vigorous fundal pressure and bimanual sweeping of the blood clots present. Approximately 45 minutes to an hour later, the same episode occurred similar to the first, needing a vigorous fundal massage, bimanual pressure, Methergine X1, however, her blood pressure did not respond at this point and emergent need to return to the operating room was called. The nursing quilting supervisor of the hospital was present. The OB charge nurse was present. The RN taking care of her in the PACU was present, and this was all communicated very quickly, as well as a call for blood products. In the operating room, A Bakri balloon was placed into the uterus and out the vagina after ascertaining that there was no active bleeding from any surgical edges. Therefore, the diagnosis was confirmed to be uterine atony causing her bleeding. We eventually obtained control of her bleeding and we were able to catch up to a stable state, as far as her hemodynamics are concerned due to anesthesia efforts with volume, blood products and pressors. We watched her in the operating room for approximately 45 minutes to an hour to ensure that the patient was indeed stable. At this point, we moved her to the PACU. Approximately one hour after her arrival to the PACU, she again started to have very heavy bleeding and an emergent hysterectomy was called and performed. She was transferred to the intensive care unit (ICU) after the PACU stay and remained there for three days. She had a peripherally inserted central catheter (PICC) line placed for her frequent blood draws. She received in total 9 unitsof packed red blood cells, 5 units of fresh frozen plasma, and 1 unit of platelets throughout her hospital stay. She was given Lasix twice, once in the ICU and once on the floor. After her transfer to the floor she did develop a few persistent severe range pressures, which responded well to IV antihypertensive times one and oral antihypertensive, with which she will be discharged. On 10/03/2016, the patient had a significant anxiety attack and was seen by psychiatry who diagnosed her with acute stress disorder and placed her on propranolol for anxiety prophylaxis. This did not work very well and was only used for one day. The patient eventually did much better and only a single dose of Ativan throughout her whole hospitalization and was discharged with an excellent attitude, in stable condition with plans for behavioral health followup as needed. PROCEDURES PERFORMED: 1. Induction of labor. 2. section. 3. Postoperative laparotomy and Bakri intrauterine balloon placement. 4. hysterectomy. 5. PICC line placement. DISCHARGE LAB VALUES: On 10/04/2016 hemoglobin was 7.6, stable, hematocrit was 22.5 and platelets were 277. Her last coags were performed on 10/02/2016, which showed a PT of 12.8, INR of 0.95, PTT of 31 and fibrinogen of 568. Her last chemistry was done on 10/04/2016, which showed a normal chemistry, normal liver function tests. She never had any serum changes with her known preeclampsia. IMAGING: She received an abdominal x-ray after both postoperative surgeries due to the emergent nature of the surgery and no preoperative counts, which were both normal. The afternoon after her surgery she also underwent a CT of the abdomen and pelvis. She received a chest x-ray the evening of 10/02/2016, which was largely unremarkable. DISCHARGE MEDICATIONS: - Motrin 800 mg - Percocet as needed - Colace 100 mg twice a day - Lanolin - Lovenox 40 mg - labetalol 200 mg three times a day - iron twice a day - vitamin C - Ativan 0.5 mg three times a day as needed DISPOSITION: The plan is for Mrs. Christian to go home with one more week of no driving, four weeks of no bathing and showers only, six weeks of nothing in the vagina, close followup within one week for an incision check and blood pressure check. GONSALOD
== END 2016-10-05 12:45 | disposition home or self-care (01) | DRG 765 ==
LOC: M LDI 13:09 → M ICU 09-30 05:55 → M OBS 10-02 15:59 → M LDI 10-03 10:31
PROVIDERS: ADMIT Advanced Practice Midwife; ATTEND Advanced Practice Midwife
PROC: 10D00Z1 Extraction of Products of Conception, Low, Open Approach (ICD-10-PCS; principal; 2016-09-28)
PROC: 3E033VJ Introduction of Other Hormone into Peripheral Vein, Percutaneous Approach (ICD-10-PCS; 2016-09-28)
PROC: 30233N1 Transfusion of Nonautologous Red Blood Cells into Peripheral Vein, Percutaneous Approach (ICD-10-PCS; 2016-09-29)
PROC: 0UTC0ZZ Resection of Cervix, Open Approach (ICD-10-PCS; 2016-09-30)
PROC: 0UT90ZZ Resection of Uterus, Open Approach (ICD-10-PCS; 2016-09-30)
PROC: 0WH Anatomical Regions, General, Insertion (ICD-10-PCS; 2016-09-30)
PROC: 30233R1 Transfusion of Nonautologous Platelets into Peripheral Vein, Percutaneous Approach (ICD-10-PCS; 2016-09-30)
PROC: 30233K1 Transfusion of Nonautologous Frozen Plasma into Peripheral Vein, Percutaneous Approach (ICD-10-PCS; 2016-09-30)
PROC: 02HV33Z Insertion of Infusion Device into Superior Vena Cava, Percutaneous Approach (ICD-10-PCS; 2016-10-01)
DX: O14.94 Unspecified pre-eclampsia, complicating childbirth (principal); O99.12 Other diseases of the blood and blood-forming organs and certain disorders involving the immune mechanism complicating childbirth; D62 Acute posthemorrhagic anemia; O72.3 Postpartum coagulation defects; O72.1 Other immediate postpartum hemorrhage; Z37.0 Single live birth; O99.824 Streptococcus B carrier state complicating childbirth; O13.4 Gestational [pregnancy-induced] hypertension without significant proteinuria, complicating childbirth; Z3A.39 39 weeks gestation of pregnancy; Z79.899 Other long term (current) drug therapy; Z88.2 Allergy status to sulfonamides; Z88.5 Allergy status to narcotic agent; R12 Heartburn; O32.4XX0 Maternal care for high head at term, not applicable or unspecified; Z82.49 Family history of ischemic heart disease and other diseases of the circulatory system; Z80.0 Family history of malignant neoplasm of digestive organs; Z80.42 Family history of malignant neoplasm of prostate; E83.42 Hypomagnesemia; R60.9 Edema, unspecified; F43.0 Acute stress reaction; N85.8 Other specified noninflammatory disorders of uterus; O34.593 Maternal care for other abnormalities of gravid uterus, third trimester; O99.03 Anemia complicating the puerperium; O99.345 Other mental disorders complicating the puerperium; O99.284 Endocrine, nutritional and metabolic diseases complicating childbirth